=== PATIENT | female | born 1965 | race Caucasian/White ===

== ENCOUNTER 2016-06-24 17:49 | Emergency (ER) ==
[2016-06-24 17:52] VITALS: BP 142/85; TEMP 98.8; BMI 34.2
--- NOTE | 2016-06-24 18:05 | ED.PDOC ---
General ED Provider: Dr. ANGELIA PATTON JR Chief Complaint: Nausea/Vomiting Stated Complaint: patient c/o vomiting and diarrhea. states lower abd. is hurting.[End]SINCE 02:30 98.8 103 20 91% 142/85 710 patient states she has other drug allergies but is unsure what they are. patient also unsure of her medications.[ End ] NOTES HAS HAD EPISODES IN THE PAST IMPROVED WITH ZOFRAN Time Seen by Physician: 18:04 Mode of Arrival: Walk-In Information Source: Patient Exam Limitations: No limitations Nursing and Triage Documentation Reviewed and Agree: No Review of Systems - Review Of Systems Constitutional: Reports: Malaise, Weakness Eyes: Reports: No symptoms Ears, Nose, Mouth, Throat: Reports: No symptoms Respiratory: Reports: No symptoms Cardiac: Reports: No symptoms GI: Reports: Abdominal pain, Nausea, Vomiting, Other (DRY HEAVES) : Reports: No symptoms Musculoskeletal: Reports: No symptoms Skin: Reports: No symptoms Neurological: Reports: No symptoms Endocrine: Reports: No symptoms Hematologic/Lymphatic: Reports: No symptoms All Other Systems: Other Past Medical History - Past Medical History Endocrine: Reports: None Cardiovascular: Reports: None Respiratory: Reports: COPD Hematological: Reports: None Gastrointestinal: Reports: Unknown Genitourinary: Reports: None Neuro/Psych: Reports: Depression Musculoskeletal: Reports: None Cancer: Reports: None Last Menstrual Period: 16 - Surgical History General Surgical History: Reports: Tubal ligation, Orthopedic (carpal tunnel right hand[) - Family History Family History: Reports: Unknown - Social History Smoking Status: Current every day smoker Hx Substance Use: No Alcohol Screening: None Physical Exam - Physical Exam Appearance: Ill-appearing Ill-appearing: Moderate Pain Distress: Moderate Eyes: MARIA ELENA ENT: Ears normal, Nose normal, Oropharynx normal Neck: Supple Respiratory: Airway patent, Breath sounds clear, Breath sounds equal, Respirations nonlabored Cardiovascular: RRR, Pulses normal, No rub, No murmur GI/: Soft, Tender (ruq AND LOWER ABDOMEN) Musculoskeletal: Normal strength, ROM intact, No edema, No calf tenderness Skin: Warm, Dry, Normal color Neurological: Sensation intact, Motor intact, Reflexes intact, Cranial nerves intact, Alert, Oriented Psychiatric: Affect appropriate, Mood appropriate Interpretation - Radiology Interpretation Radiology Interpretation By: Radiologist Radiology Results: Negative Exam Interpreted: CT Scan (ABDOMEN NO ACUTE CHANGES) Critical Care Note - Critical Care Note Total Time (mins): 5 Course - Course Hematology/Chemistry: 06/24/16 18:30 06/24/16 18:30 Orders, Labs, Meds: Lab Review 06/24/16 06/24/16 18:04 18:30 WBC 7.18 RBC 4.89 Hgb 14.1 Hct 44.7 MCV 91.4 MCH 28.8 MCHC 31.5 L RDW Coeff of Javon 14.4 Plt Count 332 Immature Gran % (Auto) 0.3 Neut % (Auto) 70.7 Lymph % (Auto) 23.8 [place] % (Auto) 4.7 Eos % (Auto) 0.1 Baso % (Auto) 0.4 Immature Gran # (Auto) 0.0 Neut # 5.1 Lymph # 1.7 Chaves # 0.3 L Eos # 0.0 Baso # 0.0 Sodium 140 Potassium 4.4 Chloride 105 Carbon Dioxide 26 Anion Gap 13.4 BUN 12 Creatinine 0.73 Estimated GFR (MDRD) 84.00 BUN/Creatinine Ratio 16.43 Glucose 103 Calcium 9.4 Total Bilirubin 0.41 AST 15 ALT 15 Alkaline Phosphatase 70 Total Protein 7.4 Albumin 4.0 Globulin 3.4 Albumin/Globulin Ratio 1.18 Amylase 39 Lipase 16 Urine Color Yellow Urine Clarity Slightly Urine pH 6.0 Ur Specific [place] >=1.030 Urine Protein Negative Urine Glucose (UA) Negative Urine Ketones Negative Urine Blood 1+ Urine Nitrite Negative Urine Bilirubin Negative Urine Urobilinogen 0.2 Ur Leukocyte Esterase Negative Urine Microscopic RBC 5-10 Ur Squamous Epith Cells 30-50 H. pylori IgG Antibody Negative Orders Category Date Time Status AMYLASE Stat LAB 06/24/16 18:30 Completed CBC W/ AUTO DIFF Stat LAB 06/24/16 18:30 Completed COMPREHENSIVE METABOLIC PANEL Stat LAB 06/24/16 18:30 Completed H. PYLORI SCREEN Stat LAB 06/24/16 18:30 Completed LIPASE Stat LAB 06/24/16 18:30 Completed URINALYSIS C & S IF INDICATED Stat LAB 06/24/16 18:04 Completed Ondansetron HCl/Pf [Zofran 4 mg/2 ml] MEDS 06/24/16 18:25 Discontinued 4 mg IM ONCE STA CHEST, 2 VIEWS PA & LAT Stat RADS 06/24/16 18:[address] ABDOMEN/PELVIS WO CONTRAST Stat RADS 06/24/16 18:24 Completed Medications Discontinued Medications Generic Name Dose Route Start Last Admin Trade Name Freq PRN Reason Stop Dose Admin Ondansetron HCl 4 mg 06/24/16 18:25 06/24/16 18:37 Zofran 4 Mg/2 Ml IM 06/24/16 18:26 4 mg ONCE STA Administration Vital Signs: Temp Pulse Resp BP Pulse Ox 06/24/16 17:49 98.8 F 103 H 20 142/85 H 91 L Departure - Departure Time of Disposition: 19:16 Disposition: HOME SELF-CARE Discharge Problem: Nausea, Vomiting Instructions: Acute Nausea and Vomiting (ED) Condition: Good Pt referred to PMD for follow-up: Yes Additional Instructions: clear liquids for 6 to 12 hours after vomiting recheck PMD this week return if fever over 101.0 if not urinating more than three times a day may use phenergan four times a day if needed for nausea Prescriptions: Promethazine HCl [Phenergan Tab] 25 mg PO QID PRN #12 tablet PRN Reason: Nausea / Vomiting Allergies/Adverse Reactions: Allergies ampicillin Adverse Reaction (Verified 06/24/16 17:53) venlafaxine [From Effexor] Adverse Reaction (Verified 06/24/16 17:53) Home Medications: Ambulatory Orders Promethazine HCl [Phenergan Tab] 25 mg PO QID PRN #12 tablet 06/24/16 Disposition Discussed With: Patient, Family
[2016-06-24] MEDS ORDERED: ZOFRAN 4 MG/2 ML IM STA (18:25)
[2016-06-24 18:37] LABS: BILIRUBIN,URINE Negative (NEGATIVE); KETONES,URINE Negative (NEGATIVE); LEUKOCYTE ESTERASE ,URINE Negative (NEGATIVE); NITRITE,URINE Negative (NEGATIVE); PROTEIN,URINE Negative (NEGATIVE); URINE, BLOOD 1+ (NEGATIVE)
[2016-06-24 18:38] LABS: BASOPHILS % (AUTO) 0.4 % (0.0-3.0); EOSINOPHILS % (AUTO) 0.1 % (0.0-7.0); HEMATOCRIT 44.7 % (37.0-47.0); HEMOGLOBIN 14.1 g/dl (12.0-16.0); IMMATURE GRANULOCYTE % (AUTO) 0.3 % (0.0-5.0); LYMPHOCYTES # (AUTO) 1.7 K/uL (0.60-3.4); LYMPHOCYTES % (AUTO) 23.8 (10.0-50.0); MEAN CORPUSCULAR HEMOGLOBIN 28.8 pg (27.0-31.0); MEAN CORPUSCULAR HGB CONC 31.5 (31.8-35.4); MEAN CORPUSCULAR VOLUME 91.4 fl (81.0-99.0); MONOCYTES # (AUTO) 0.3 K/uL (0.4-2.0); MONOCYTES % (AUTO) 4.7 (0-10); NEUTROPHILS # (AUTO) 5.1 K/ul (2.0-6.9); NEUTROPHILS % (AUTO) 70.7; PLATELET COUNT 332 10^3/uL (140-440); RED BLOOD COUNT 4.89 10^6/ul (4.20-5.40); WHITE BLOOD COUNT 7.18 K/ul (4.6-10.2)
[2016-06-24 18:41] LABS: ADD URINE MICROSCOPIC YES
[2016-06-24 18:58] LABS: H. PYLORI ANTIBODY NEGATIVE (NEGATIVE); H.PYLORI INTERNAL QC INTERNAL QC VALID
[2016-06-24 18:59] LABS: ALBUMIN/GLOBULIN RATIO 1.18; ANION GAP 13.4; BILIRUBIN,TOTAL 0.41 mg/dL (0.00-1.20); BUN/CREATININE RATIO 16.43; CALCIUM 9.4 mg/dL (8.2-10.2); CREATININE 0.73 mg/dL (0.60-1.30); POTASSIUM 4.4 mmol/L (3.5-5.10); TOTAL PROTEIN 7.4 g/dL (6.4-8.2)
--- NOTE | 2016-06-24 20:08 | CT ---
EXAM: CT abdomen pelvis without contrast HISTORY: Abdominal pain with nausea/vomiting COMPARISON: None TECHNIQUE: CT abdomen pelvis performed without intravenous contrast. Coronal and sagittal reformat south images obtained. FINDINGS: There is granulomatous calcification left lung base. No free air. No acute abnormalities of the bones. Heart normal in size. Evaluation organ parenchyma limited without contrast. Liver appears normal. Gallbladder appears normal. Pancreas appears normal. Spleen appears normal. Adre nals appear normal. No hydronephrosis or nephrolithiasis. There is a 1.5 cm left renal cyst that i s unchanged from PET-CT 12/14/2013. No calculi visualized in the normal course of the ureters. Milind dder only minimally distended and poorly evaluated. Uterus unremarkable. Aorta normal in caliber w ith mild atherosclerosis. No lymphadenopathy or ascites. Stomach appears normal. No dilated loops small bowel. Appendix appears normal. Colon unremarkable. Small fat-containing umbilical hernia. No inflammatory stranding in the abdomen pelvis. IMPRESSION: No acute inflammatory process identified in the abdomen or pelvis.
--- NOTE | 2016-06-24 22:32 | DI ---
EXAM: Chest two views HISTORY: Vomiting, abdominal pain COMPARISON: None TECHNIQUE: Two views of the chest were performed FINDINGS: The lungs are clear. There is no pleural effusion or pneumothorax. The heart is normal in size. The mediastinal contour is normal. There are no acute abnormalities of the bones. IMPRESSION: No acute cardiopulmonary process.
== END 2016-06-24 20:29 | disposition home or self-care (01) ==
LOC: ED 17:49
DX: R11.2 Nausea with vomiting, unspecified (principal); R19.7 Diarrhea, unspecified; R10.30 Lower abdominal pain, unspecified; F17.210 Nicotine dependence, cigarettes, uncomplicated
CPT/HCPCS: 36415; 80053; 81001; 82150; 83690; 85025; 86677; 96372; 99283

== ENCOUNTER 2016-10-09 07:26 | Emergency (ER) ==
[2016-10-09 07:34] VITALS: BP 131/84; TEMP 98.8; BMI 34.3
[2016-10-09 08:14] LABS: BASOPHILS # (AUTO) 0.1 K/uL (0-0.2); BASOPHILS % (AUTO) 0.6 % (0.0-3.0); EOSINOPHILS # (AUTO) 0.1 K/ul (0.0-0.7); EOSINOPHILS % (AUTO) 1.1 % (0.0-7.0); HEMATOCRIT 41.3 % (37.0-47.0); HEMOGLOBIN 13.6 g/dl (12.0-16.0); IMMATURE GRANULOCYTE % (AUTO) 0.2 % (0.0-5.0); LYMPHOCYTES # (AUTO) 0.9 K/uL (0.60-3.4); LYMPHOCYTES % (AUTO) 8.3 (10.0-50.0); MEAN CORPUSCULAR HEMOGLOBIN 30.2 pg (27.0-31.0); MEAN CORPUSCULAR HGB CONC 32.9 (31.8-35.4); MEAN CORPUSCULAR VOLUME 91.8 fl (81.0-99.0); MONOCYTES # (AUTO) 0.5 K/uL (0.4-2.0); MONOCYTES % (AUTO) 4.4 (0-10); NEUTROPHILS # (AUTO) 8.7 K/ul (2.0-6.9); NEUTROPHILS % (AUTO) 85.4; PLATELET COUNT 273 10^3/uL (140-440); WHITE BLOOD COUNT 10.18 K/ul (4.6-10.2)
--- NOTE | 2016-10-09 08:18 | DI ---
EXAM: PA and lateral views of the chest HISTORY: Cough COMPARISON: Chest x-ray 06/24/2016 FINDINGS: The cardiomediastinal silhouette is normal. There is no pneumothorax or pleural effusion . There is no consolidation, nodule or mass. The osseous structures are unremarkable. IMPRESSION: No acute cardiopulmonary process
[2016-10-09 08:29] LABS: BILIRUBIN,URINE Negative (NEGATIVE); KETONES,URINE Negative (NEGATIVE); LEUKOCYTE ESTERASE ,URINE Trace (NEGATIVE); NITRITE,URINE Negative (NEGATIVE); PROTEIN,URINE Trace (NEGATIVE); URINE, BLOOD 2+ (NEGATIVE)
[2016-10-09 08:30] LABS: ADD URINE MICROSCOPIC YES; BACTERIA,URINE 1+ (NOT PRESENT)
[2016-10-09 08:33] LABS: ALBUMIN 3.6 g/dL (3.4-5.0); ALBUMIN/GLOBULIN RATIO 1.16; ANION GAP 13.6; BILIRUBIN,TOTAL 0.52 mg/dL (0.00-1.20); BUN/CREATININE RATIO 14.66; CALCIUM 8.5 mg/dL (8.2-10.2); CREATININE 0.75 mg/dL (0.60-1.30); POTASSIUM 3.6 mmol/L (3.5-5.10); TOTAL PROTEIN 6.7 g/dL (6.4-8.2)
--- NOTE | 2016-10-09 08:42 | CT ---
EXAM: CT of the abdomen pelvis without contrast History: Diffuse abdominal pain. Comparison: CT abdomen pelvis 06/24/2016 Technique: Multiplanar CT images through the abdomen pelvis were obtained without the administratio n of IV contrast Findings: Lung bases are free of consolidation. Dependent atelectasis seen at the lung bases. Sta ble 4 mm left lower lobe lung nodule. No acute osseous abnormalities. No renal stones and no hydronephrosis. Stable small left renal cyst. No focal liver or splenic les ions. No discrete gallstones identified by CT. No peripancreatic inflammation. Adrenal glands are unremarkable. No bowel obstruction. Bladder is not well distended. Scattered colonic stool. No free air and no ascites. Normal contour the uterus. The visualized appendix is not dilated or infl avril. Impression: No acute intra-abdominal or pelvic process. No change compared to the prior study.
[2016-10-09 08:54] LABS: FLU INTERNAL QC INTERNAL QC VALID; RAPID FLU A NEGATIVE (NEGATIVE); RAPID FLU B NEGATIVE (NEGATIVE)
--- NOTE | 2016-10-09 09:08 | ED.PDOC ---
General ED Provider: Dr. CAR HANSEN Chief Complaint: Nausea/Vomiting Stated Complaint: abdominal pain Time Seen by Physician: 07:30 Mode of Arrival: Walk-In Information Source: Patient Exam Limitations: No limitations Primary Care Provider: AKSHAT MEZA Nursing and Triage Documentation Reviewed and Agree: Yes GI Complaint Exam - Abdominal Pain Complaint/Exam Onset: Gradual Symptoms Are: Still present Timing: Intermittent Initial Severity: Mild Current Severity: Mild Location of Pain: Discrete Character: Reports: Dull Alleviating: Reports: Rest Associated Signs and Symptoms: Denies: Diaphoresis, Fever, Cough, Chest pain, Dizziness, Back pain, Constipation, Blood in stool, Dysuria, Urinary frequency, Decreased urine output, Decreased appetite, Vaginal bleeding, Vaginal discharge , Nausea, Vomiting, Diarrhea, Sore throat, Decreased activity Related History: Reports: Similar episode AAA Risk Factors: Reports: None Review of Systems - Review Of Systems Constitutional: Reports: No symptoms Eyes: Reports: No symptoms Ears, Nose, Mouth, Throat: Reports: No symptoms Respiratory: Reports: No symptoms Cardiac: Reports: No symptoms GI: Reports: Abdominal pain, Nausea, Vomiting (vomited x 1 ) : Reports: No symptoms Musculoskeletal: Reports: No symptoms Skin: Reports: No symptoms Neurological: Reports: No symptoms Endocrine: Reports: No symptoms Hematologic/Lymphatic: Reports: No symptoms All Other Systems: Reviewed and Negative Past Medical History - Past Medical History Endocrine: Reports: None Cardiovascular: Reports: None Respiratory: Reports: COPD Hematological: Reports: None Gastrointestinal: Reports: Unknown Genitourinary: Reports: None Neuro/Psych: Reports: Depression Musculoskeletal: Reports: None Cancer: Reports: None Last Menstrual Period: 2 month ago--irreg now - Surgical History General Surgical History: Reports: Tubal ligation, Orthopedic (carpal tunnel right hand[) - Family History Family History: Reports: Unknown - Social History Smoking Status: Current every day smoker, Heavy tobacco smoker Hx Substance Use: No Alcohol Screening: None Physical Exam - Physical Exam Appearance: Well-appearing, No pain distress, Well-nourished Eyes: MARIA ELENA, EOMI, Conjunctiva clear ENT: Ears normal, Nose normal, Oropharynx normal Respiratory: Airway patent, Breath sounds clear, Breath sounds equal, Respirations nonlabored Cardiovascular: RRR, Pulses normal, No rub, No murmur GI/: Soft, Nontender, No masses, Bowel sounds normal, No Organomegaly Musculoskeletal: Normal strength, ROM intact, No edema, No calf tenderness Skin: Warm, Dry, Normal color Neurological: Sensation intact, Motor intact, Reflexes intact, Cranial nerves intact, Alert, Oriented Psychiatric: Affect appropriate, Mood appropriate Interpretation - Radiology Interpretation Radiology Interpretation By: Radiologist Radiology Results: Negative Exam Interpreted: CXR Critical Care Note - Critical Care Note Total Time (mins): 0 Course - Course Hematology/Chemistry: 10/09/16 08:05 10/09/16 08:05 Orders, Labs, Meds: Lab Review 10/09/16 10/09/16 10/09/16 08:05 08:20 08:25 WBC 10.18 RBC 4.50 Hgb 13.6 Hct 41.3 MCV 91.8 MCH 30.2 MCHC 32.9 RDW Coeff of Javon 14.5 Plt Count 273 Immature Gran % (Auto) 0.2 Neut % (Auto) 85.4 Lymph % (Auto) 8.3 L [place] % (Auto) 4.4 Eos % (Auto) 1.1 Baso % (Auto) 0.6 Immature Gran # (Auto) 0.0 Neut # 8.7 H Lymph # 0.9 Moffat # 0.5 Eos # 0.1 Baso # 0.1 Sodium 141 Potassium 3.6 Chloride 105 Carbon Dioxide 26 Anion Gap 13.6 BUN 11 Creatinine 0.75 Estimated GFR (MDRD) 82.00 BUN/Creatinine Ratio 14.66 Glucose 95 Lactic Acid 18.4 Calcium 8.5 Total Bilirubin 0.52 AST 12 L ALT 13 Alkaline Phosphatase 68 Total Protein 6.7 Albumin 3.6 Globulin 3.1 Albumin/Globulin Ratio 1.16 Urine Color Yellow Urine Clarity Clear Urine pH 6.0 Ur Specific [place] 1.025 Urine Protein Trace Urine Glucose (UA) Negative Urine Ketones Negative Urine Blood 2+ Urine Nitrite Negative Urine Bilirubin Negative Urine Urobilinogen 0.2 Ur Leukocyte Esterase Trace Urine Microscopic RBC 5-10 Urine Microscopic WBC 5-10 Ur Squamous Epith Cells 5-10 Urine Bacteria 1+ Urine Mucus 1+ Influenza A (Rapid) Negative Influenza B (Rapid) Negative Orders Category Date Time Status BLOOD CULTURE Stat LAB 10/09/16 08:05 Received CBC W/ AUTO DIFF Stat LAB 10/09/16 08:05 Completed COMPREHENSIVE METABOLIC PANEL Stat LAB 10/09/16 08:05 Completed LACTIC ACID Stat LAB 10/09/16 08:05 Completed MOLECULAR GROUP A STREP Stat LAB 10/09/16 08:25 Results RAPID FLU A/B Stat LAB 10/09/16 08:25 Completed STREP SCREEN Stat LAB 10/09/16 08:25 Results URINALYSIS C & S IF INDICATED Stat LAB 10/09/16 08:20 Completed URINE CULTURE Stat LAB 10/09/16 08:20 Received CHEST, 2 VIEWS PA & LAT Stat RADS 10/09/16 07:[address] ABDOMEN/PELVIS WO CONTRAST Stat RADS 10/09/16 07:49 Completed Vital Signs: Temp Pulse Resp BP Pulse Ox 10/09/16 07:27 98.8 F 113 H 20 131/84 94 L Departure - Departure Time of Disposition: 09:11 Disposition: HOME SELF-CARE Discharge Problem: Nausea, Vomiting UTI (urinary tract infection) Qualifiers: Urinary tract infection type: site unspecified Hematuria presence: with hematuria Qualifier Code: (N39.0) Urinary tract infection, site not specified Abdominal pain Qualifiers: Abdominal location: generalized Qualifier Code: (R10.84) Generalized abdominal pain Instructions: Urinary Tract Infection in Women (ED) Condition: Good Pt referred to PMD for follow-up: No Additional Instructions: Please call your Family Physician as soon as possible to schedule a follow-up appointment. Prescriptions: Sulfamethoxazole/Trimethoprim [Bactrim Ds Tablet] 1 each PO BID #10 tablet Allergies/Adverse Reactions: Allergies ampicillin Adverse Reaction (Verified 10/09/16 07:36) azithromycin [From Zithromax] Adverse Reaction (Verified 10/09/16 07:36) fluoxetine [From Prozac] Adverse Reaction (Verified 10/09/16 07:36) naproxen Adverse Reaction (Verified 10/09/16 07:36) venlafaxine [From Effexor] Adverse Reaction (Verified 10/09/16 07:36) Home Medications: Ambulatory Orders Albuterol Sulfate 0.083% Neb [Albuterol 0.083% Neb] 1 vial NEB ONCE PRN Albuterol Sulfate [Proair Hfa] 2 puff IH ONCE PRN 10/09/16 Budesonide/Formoterol Fumarate [Symbicort 160-4.5 Mcg Inhaler] 2 puff IH BID Diphenhydramine HCl [Benadryl] 50 mg PO ONCE 10/09/16 Gabapentin 300 mg PO BID 10/09/16 Guaifenesin [Mucinex] 600 mg PO ONCE 10/09/16 Methocarbamol 750 mg PO BEDTIME 10/09/16 Omeprazole [Prilosec] 20 mg PO QDAC 10/09/16 Sulfamethoxazole/Trimethoprim [Bactrim Ds Tablet] 1 each PO BID #10 tablet 10/09 Tramadol HCl 50 mg PO Q4HR PRN 10/09/16
== END 2016-10-09 09:25 | disposition home or self-care (01) ==
LOC: ED 07:26
DX: N39.0 Urinary tract infection, site not specified (principal); R11.2 Nausea with vomiting, unspecified; R10.84 Generalized abdominal pain; F17.210 Nicotine dependence, cigarettes, uncomplicated; Z79.899 Other long term (current) drug therapy
CPT/HCPCS: 36415; 80053; 81001; 83605; 85025; 87040; 87086; 87186; 87651; 87804; 87880; 99283

== ENCOUNTER 2016-10-11 18:55 | Inpatient (IN) ==
[2016-10-11] MEDS ORDERED: LEVAQUIN 500 MG in PREMIX 100 ML D5W 1 BAG IV STA (19:14)
[2016-10-11] MEDS ORDERED: SODIUM CHLORIDE 1,000 ML IV STA (19:14)
[2016-10-11] MEDS ORDERED: SOLU-MEDROL 125 MG IVP STA (19:14)
[2016-10-11] MEDS ORDERED: DUONEB NEB STA (19:15)
[2016-10-11] MEDS ORDERED: XOPENEX 1.25 MG NEB STA (19:15)
[2016-10-11] MEDS ORDERED: SODIUM CHLORIDE IV STA (19:17)
[2016-10-11] MEDS ORDERED: PHENERGAN IV STA (19:17)
[2016-10-11] MEDS ORDERED: NORCO 7.5-325 PO STA (19:17)
[2016-10-11] MEDS ORDERED: LEVAQUIN 100 ML IV ONE (19:26)
[2016-10-11] MEDS ORDERED: PHENERGAN 50MG/ML AMP ONE (19:26)
[2016-10-11 19:49] LABS: BASOPHILS % (AUTO) 0.6 % (0.0-3.0); EOSINOPHILS % (AUTO) 0.6 % (0.0-7.0); HEMATOCRIT 42.3 % (37.0-47.0); HEMOGLOBIN 14.1 g/dl (12.0-16.0); IMMATURE GRANULOCYTE % (AUTO) 0.2 % (0.0-5.0); LYMPHOCYTES # (AUTO) 1.3 K/uL (0.60-3.4); LYMPHOCYTES % (AUTO) 25.3 (10.0-50.0); MEAN CORPUSCULAR HEMOGLOBIN 30.8 pg (27.0-31.0); MEAN CORPUSCULAR HGB CONC 33.3 (31.8-35.4); MEAN CORPUSCULAR VOLUME 92.4 fl (81.0-99.0); MONOCYTES # (AUTO) 0.5 K/uL (0.4-2.0); MONOCYTES % (AUTO) 9.9 (0-10); NEUTROPHILS # (AUTO) 3.1 K/ul (2.0-6.9); NEUTROPHILS % (AUTO) 63.4; PLATELET COUNT 274 10^3/uL (140-440); RED BLOOD COUNT 4.58 10^6/ul (4.20-5.40); WHITE BLOOD COUNT 4.95 K/ul (4.6-10.2)
[2016-10-11 20:01] LABS: SERUM PREGNANCY INTERNAL QC INTERNAL QC VALID
[2016-10-11 20:01] LABS: ABG BASE EXCESS 0 (-2.0-2.0); ABG HCO3 26.3 (22.0-26.0); ABG PCO2 49.4 mmHg (35-45); ABG PH 7.335 (7.35-7.45); ABG TCO2 28 (22.0-28.0)
[2016-10-11 20:09] LABS: FLU INTERNAL QC INTERNAL QC VALID; RAPID FLU A NEGATIVE (NEGATIVE); RAPID FLU B NEGATIVE (NEGATIVE)
[2016-10-11 20:10] LABS: ALANINE AMINOTRANSFERASE 21 U/L (12-78); ALBUMIN 3.8 g/dL (3.4-5.0); ALBUMIN/GLOBULIN RATIO 1.06; ALKALINE PHOSPHATASE 62 U/L (42-98); ANION GAP 13.7; ASPARTATE AMINO TRANSFERASE 21 U/L (15-37); BILIRUBIN,TOTAL 0.38 mg/dL (0.00-1.20); BLOOD UREA NITROGEN 13 mg/dL (7-18); BUN/CREATININE RATIO 15.85; CALCIUM 8.6 mg/dL (8.2-10.2); CARBON DIOXIDE 26 mmol/L (21-32); CHLORIDE 102 mmol/L (98-107); CREATINE KINASE 83 U/L; CREATININE 0.82 mg/dL (0.60-1.30); GLUCOSE 115 mg/dL (70-110); POTASSIUM 3.7 mmol/L (3.5-5.10); SODIUM 138 mmol/L (136-145); TOTAL PROTEIN 7.4 g/dL (6.4-8.2)
--- NOTE | 2016-10-11 20:49 | CT ---
EXAM: CT of the head without contrast. HISTORY: Headache. COMPARISON: None. TECHNIQUE: Contiguous axial images at 5 mm intervals were obtained from the base of the skull to th e vertex of the calvarium. No contrast was given. FINDINGS: The CSF containing spaces are normal in size and position. There are no extraaxial fluid collections. There is no evidence of an acute intracranial hemorrhage. There are no masses or mas s effect. No areas of abnormal density are identified. Cary-white differentiation is normal. Th e osseous and extracranial soft tissues are normal. IMPRESSION: No acute intracranial abnormality.
--- NOTE | 2016-10-11 20:54 | CT ---
EXAM: CT of the chest without contrast. HISTORY: Fever. Cough. COMPARISON: PET CT day 12/14/2013.. TECHNIQUE: Contiguous axial images at 5 mm intervals obtained from the lung apices to the upper abd omen. Study was performed without contrast. Sagittal and coronal reformats were reviewed. FINDINGS: The lung windows show no lobar consolidation or effusion. The pulmonary interstitium appe ars normal. The airways are widely patent. There is no pleural thickening or effusion. On axial i mages 22, there is a 3 mm noncalcified pulmonary nodule which is unchanged from previous study. On axial image 28, there is a similar 4 mm noncalcified nodule. These are both unchanged in comparison to the previous PET-CT. A calcified granuloma is seen in the left lower lobe. No new nodules are id entified. The airways are widely patent. The heart size is within normal as. There is no signif icant mediastinal or hilar adenopathy. Limited views of the upper abdomen are unremarkable. There is a density in the colon which has appe arance of a pill fragment. The osseous structures are normal for age. IMPRESSION: 1. No acute pulmonary disease. 2. Granulomatous change. 3. Stable noncalcified 3 and 4 mm nodules in the left upper lobe. No significant change dating porsha k to 2013.
--- NOTE | 2016-10-11 21:01 | ED.PDOC ---
General ED Provider: Dr. MANISHA RODRIGUEZ-ER Chief Complaint: Headache Stated Complaint: im coughing, vomiting and im running a fever Time Seen by Physician: 18:55 Mode of Arrival: Walk-In Information Source: Patient Exam Limitations: No limitations Primary Care Provider: AKSHAT MEZA Nursing and Triage Documentation Reviewed and Agree: Yes Respiratory Complaint Exam - Respiratory Complaint/Exam Onset/Duration: 2 days Symptoms Are: Still present Timing: Constant Initial Severity: Mild Current Severity: Moderate Character: Reports: Non-productive cough Aggravating: Reports: URI Alleviating: Reports: None Associated Signs and Symptoms: Reports: Fever, URI, Sinus discomfort, Vomiting, Decreased oral intake. Denies: Rapid breathing, Dyspnea, Chills, Chest pain, Pleuritic chest pain, Wheezing, Hemoptysis, Dizziness, Calf pain, Calf swelling , Edema, Nasal congestion, Hoarseness, Sore throat, Weight loss, Increased thirst, Increased appetite, Increased urination Related History: Reports: Similar episode History of Healthcare-Acquired Pneumonia: No Related Surgical History: Reports: None Pulmonary Embolism Risk Factors: None Pseudomonas Risk Factors: Reports: Chronic Lung Disease Status Asthmaticus Risk Factors: Reports: None Home Oxygen Use: No Recent Stress Test: No Recent Echo/LV Function: No Current Antibiotic Use: No Current Asthma Medication Use: No Respiratory Distress: Mild Inadequate Respiratory Effort: No Dysphagia Present: No Stridor Present: No JVD Present: No Accessory Muscle Use: No Retractions: Not Present Diminished Breath Sounds: No Sinus Tenderness: None Grunting Respirations: No Kussmaul Respirations: No Differential Diagnoses: Pneumonia, Influenza Non-Traumatic Chest Pain Syncope: EKG Performed Review of Systems - Review Of Systems Constitutional: Reports: Chills, Fever, Weakness Eyes: Reports: No symptoms Ears, Nose, Mouth, Throat: Reports: No symptoms Respiratory: Reports: Cough, Wheezing Cardiac: Reports: No symptoms GI: Reports: Nausea, Vomiting : Reports: No symptoms Musculoskeletal: Reports: No symptoms Skin: Reports: No symptoms Neurological: Reports: No symptoms Endocrine: Reports: No symptoms Hematologic/Lymphatic: Reports: No symptoms All Other Systems: Reviewed and Negative Past Medical History - Past Medical History Endocrine: Reports: None Cardiovascular: Reports: None Respiratory: Reports: COPD Hematological: Reports: None Gastrointestinal: Reports: Unknown Genitourinary: Reports: None Neuro/Psych: Reports: Depression Musculoskeletal: Reports: None Cancer: Reports: None Last Menstrual Period: 2 months ago - Surgical History General Surgical History: Reports: Tubal ligation, Orthopedic (carpal tunnel right hand[) - Family History Family History: Reports: Unknown - Social History Smoking Status: Current every day smoker, Heavy tobacco smoker Hx Substance Use: No Alcohol Screening: None Lives: With family Physical Exam - Physical Exam Appearance: Well-appearing Pain Distress: Mild Eyes: MARIA ELENA, EOMI, Conjunctiva clear ENT: Ears normal, Nose normal, Oropharynx normal Neck: Supple Respiratory: Airway patent Cardiovascular: RRR, Pulses normal, No rub, No murmur GI/: Soft, Nontender, No masses, Bowel sounds normal, No Organomegaly Musculoskeletal: Normal strength Skin: Warm Neurological: Sensation intact Psychiatric: Affect appropriate, Mood appropriate Physician Notification - Case Discussed Physician Notified: dr james webber--asked for procalcitonin level Time of Notification: 21:52 Critical Care Note - Critical Care Note Total Time (mins): 0 Course - Course Hematology/Chemistry: 10/11/16 19:35 10/11/16 19:35 Orders, Labs, Meds: Lab Review 10/11/16 10/11/16 19:11 19:35 WBC 4.95 D RBC 4.58 Hgb 14.1 Hct 42.3 MCV 92.4 MCH 30.8 MCHC 33.3 RDW Coeff of Javon 14.3 Plt Count 274 Immature Gran % (Auto) 0.2 Neut % (Auto) 63.4 Lymph % (Auto) 25.3 Colbert % (Auto) 9.9 Eos % (Auto) 0.6 Baso % (Auto) 0.6 Immature Gran # (Auto) 0.0 Neut # 3.1 Lymph # 1.3 Colbert # 0.5 Eos # 0.0 Baso # 0.0 D-Dimer (Manual) 289.15 Puncture Site Rb O2 Saturation 81.0 L ABG pH 7.335 L ABG pCO2 49.4 H ABG pO2 49.0 L* ABG HCO3 26.3 H ABG Total CO2 28 ABG Base Excess 0 Kulwinder Test + FiO2 % 21.0 Sodium 138 Potassium 3.7 Chloride 102 Carbon Dioxide 26 Anion Gap 13.7 BUN 13 Creatinine 0.82 Estimated GFR (MDRD) 74.00 BUN/Creatinine Ratio 15.85 Glucose 115 H Calcium 8.6 Total Bilirubin 0.38 AST 21 ALT 21 Alkaline Phosphatase 62 Total Creatine Kinase 83 Troponin I < 0.0100 B-Natriuretic Peptide 30 Total Protein 7.4 Albumin 3.8 Globulin 3.6 Albumin/Globulin Ratio 1.06 Procalcitonin < 0.05 Serum , Qual Negative Influenza A (Rapid) Negative Influenza B (Rapid) Negative Orders Category Date Time Status ABG DRAW REQUEST Stat CARDIO 10/11/16 19:12 Completed EKG-(ED ONLY) Stat CARDIO 10/11/16 19:12 Completed NEBULIZER TREATMENT Stat CARDIO 10/11/16 19:15 Completed IV [ED IV/MEDIPORT/POWERPORT] .ONCE EMERGENCY 10/11/16 19:14 Active ABG Stat LAB 10/11/16 19:11 Completed B-TYPE NATRIURETIC PEPTIDE Stat LAB 10/11/16 19:35 Completed BLOOD CULTURE Stat LAB 10/11/16 19:35 Received CBC W/ AUTO DIFF Stat LAB 10/11/16 19:35 Completed COMPREHENSIVE METABOLIC PANEL Stat LAB 10/11/16 19:35 Completed CREATINE KINASE Stat LAB 10/11/16 19:35 Completed D-DIMER Stat LAB 10/11/16 19:35 Completed MOLECULAR GROUP A STREP Stat LAB 10/11/16 19:35 Results PROCALCITONIN Stat LAB 10/11/16 19:35 Completed RAPID FLU A/B Stat LAB 10/11/16 19:35 Completed SERUM Stat LAB 10/11/16 19:35 Completed STREP SCREEN Stat LAB 10/11/16 19:35 Results TROPONIN I Stat LAB 10/11/16 19:35 Completed 0.9 % Sodium Chloride [Saline Flush] MEDS 10/11/16 19:14 Ordered 1 syr IVF PRN PRN Hydrocodone Bit/Acetaminophen [Villisca 7.5-325] MEDS 10/11/16 19:17 Discontinued 1 tab PO ONCE STA Ipratropium/Albuterol Neb [Duoneb] MEDS 10/11/16 19:15 Discontinued 1 vial NEB ONCE STA Levalbuterol HCl [Xopenex 1.25 mg] MEDS 10/11/16 19:15 Discontinued 1 vial NEB ONCE STA Levofloxacin/D5w [Levaquin] 100 ml MEDS 10/11/16 19:26 Discontinued IV .STK-MED Levofloxacin/D5w [Levaquin] 500 mg MEDS 10/11/16 19:14 Discontinued Premix 100 ml D5w 1 bag IV ONCE Methylprednisolone Sod Succ/Pf [Solu-Medrol 125 mg] MEDS 10/11/16 19:14 Discontinued 125 mg IVP ONCE STA Promethazine HCl [Phenergan 50Mg/ml Amp] MEDS 10/11/16 19:26 Discontinued 50 mg .ROUTE .STK-MED ONE Promethazine HCl [Phenergan 50Mg/ml Amp] 12.5 mg MEDS 10/11/16 19:17 Discontinued 0.9 % Sodium Chloride [Sodium Chloride] 50 ml IV ONCE Sodium Chloride 0.9% [Sodium Chloride] 1,000 ml MEDS 10/11/16 19:14 Active IV 100 mls/hr CT ABDOMEN/PELVIS WO CONTRAST Stat RADS 10/11/16 20:[address] CHEST W/O CONTRAST Stat RADS 10/11/16 19:[address] HEAD W/O CONTRAST Stat RADS 10/11/16 19:17 Completed Medications Generic Name Dose Route Start Last Admin Trade Name Freq PRN Reason Stop Dose Admin Sodium Chloride 1,000 mls @ 100 mls/hr 10/11/16 19:14 10/11/16 19:45 Sodium Chloride IV 10/12/16 05:13 100 mls/hr .Q10H STA Administration Sodium Chloride 1 syr 10/11/16 19:14 Saline Flush IVF PRN PRN To flush IV Discontinued Medications Generic Name Dose Route Start Last Admin Trade Name Freq PRN Reason Stop Dose Admin Acetaminophen/Hydrocodone Bitart 1 tab 10/11/16 19:17 10/11/16 19:35 Villisca 7.5-325 PO 10/11/16 19:18 1 tab ONCE STA Administration Albuterol/Ipratropium 1 vial 10/11/16 19:15 10/11/16 19:58 Duoneb NEB 10/11/16 19:16 1 vial ONCE STA Administration Levofloxacin/Dextrose 500 mg/ 100 mls @ 100 mls/hr 10/11/16 19:14 10/11/16 20 :32 Dextrose IV 10/11/16 20:13 100 mls/hr ONCE STA Administration Promethazine HCl 12.5 mg/ 50.25 mls @ 75 mls/hr 10/11/16 19:17 10/11/16 19:34 Sodium Chloride IV 10/11/16 19:57 75 mls/hr ONCE STA Administration Levalbuterol HCl 1 vial 10/11/16 19:15 10/11/16 20:10 Xopenex 1.25 Mg NEB 10/11/16 19:16 1 vial ONCE STA Administration Methylprednisolone Sodium Succinate 125 mg 10/11/16 19:14 10/11/16 19:33 Solu-Medrol 125 Mg IVP 10/11/16 19:15 125 mg ONCE STA Administration Vital Signs: Temp Pulse Resp BP Pulse Ox 10/11/16 18:55 100 F H 94 H 20 127/86 84 L Departure - Departure Time of Disposition: 21:51 Disposition: ADMITTED INPATIENT Discharge Problem: COPD with exacerbation Acute respiratory failure Qualifiers: Respiratory failure complication: hypoxia Qualifier Code: (J96.01) Acute respiratory failure with hypoxia Instructions: COPD (Chronic Obstructive Pulmonary Disease) (ED) Condition: Good Pt referred to PMD for follow-up: No Allergies/Adverse Reactions: Allergies ampicillin Adverse Reaction (Verified 10/11/16 18:59) azithromycin [From Zithromax] Adverse Reaction (Verified 10/11/16 18:59) fluoxetine [From Prozac] Adverse Reaction (Verified 10/11/16 18:59) naproxen Adverse Reaction (Verified 10/11/16 18:59) venlafaxine [From Effexor] Adverse Reaction (Verified 10/11/16 18:59) Home Medications: Ambulatory Orders Albuterol Sulfate 0.083% Neb [Albuterol 0.083% Neb] 1 vial NEB ONCE PRN Albuterol Sulfate [Proair Hfa] 2 puff IH ONCE PRN 10/09/16 Budesonide/Formoterol Fumarate [Symbicort 160-4.5 Mcg Inhaler] 2 puff IH BID Diphenhydramine HCl [Benadryl] 50 mg PO ONCE 10/09/16 Gabapentin 300 mg PO BID 10/09/16 Guaifenesin [Mucinex] 600 mg PO ONCE 10/09/16 Methocarbamol 750 mg PO BEDTIME 10/09/16 Omeprazole [Prilosec] 20 mg PO QDAC 10/09/16 Sulfamethoxazole/Trimethoprim [Bactrim Ds Tablet] 1 each PO BID #10 tablet 10/09 Tramadol HCl 50 mg PO Q4HR PRN 10/09/16 Disposition Discussed With: Patient
--- NOTE | 2016-10-11 21:31 | CT ---
EXAM: Noncontrast CT of the abdomen and pelvis. HISTORY: Vomiting and fever. COMPARISON: 10/09/2016 TECHNIQUE: Contiguous axial images at 3 mm intervals were obtained from lung bases through the pelv is. No contrast was given. Coronal reformats were reviewed. FINDINGS: The study is limited without contrast. CHEST: The lung bases show no lobar consolidation or effusion. The heart size is within normal kaufman its. ABDOMEN: Evaluation of the soft tissue organs is limited without contrast. LIVER: Noncontrast images of the liver show no solid mass lesion or intrahepatic ductal dilatation. BILIARY: The gallbladder is normally distended. No gallstones are noted. No pericholecystic fluid or inflammation. The common bile duct is normal. SPLEEN: The spleen is unremarkable. PANCREAS: The pancreas shows no mass lesion or peripancreatic inflammation. ADRENAL GLANDS: The adrenal glands are normal. RENAL: The kidneys show no hydronephrosis or nephrolithiasis. There are no obstructing ureteral st ones. No solid mass lesions are identified. There is an exophytic cyst in the left kidney measurin g up to 1.5 cm. Previously, this measured 1.6 cm. RETROPERITONEUM: The aorta is unopacified. No aneurysm is identified. No significant aortic calci fications are seen. There is no retroperitoneal or mesenteric adenopathy. BOWEL: The bowel is unopacified. There is no obstruction or inflammatory change. There is no free fluid or free air. No significant inflammatory changes are seen. Multiple densities seen through out the colon which appear to be of fragments. The appendix is identified and is normal. PELVIS: BLADDER: The bladder is not well distended which limits evaluation.. GENITOURINARY STRUCTURES: Unremarkable. OSSEOUS STRUCTURES: The osseous structures are normal for age. IMPRESSION 1. No acute intra-abdominal abnormality. Limited study without contrast. No obstructing ureteral stones. 2. The appendix is normal. 3. Left renal cyst measuring up to 1.5 cm. 4. Multiple pill fragments throughout the bowel.
[2016-10-11] MEDS ORDERED: NORCO 7.5-325 PO PRN (22:28)
[2016-10-11] MEDS ORDERED: ULTRAM PO PRN (22:29)
[2016-10-11] MEDS ORDERED: NON-FORMULARY MEDICATION (Methocarbamol [Methocarbamol] 750 MG) PO SCH (22:30)
[2016-10-11] MEDS ORDERED: ROBAXIN PO ONE (23:08)
[2016-10-11 23:33] VITALS: BMI 31.6
[2016-10-11] MEDS ORDERED: DUONEB NEB ONE (23:42)
[2016-10-11] MEDS: DUONEB NEB SCH (23:42)
[2016-10-11] MEDS: SYMBICORT 160-4.5 MCG INHALER IH SCH (23:56)
[2016-10-12] MEDS: SOLU-MEDROL 40 MG IVP SCH ×4 (00:43→20:15)
[2016-10-12] MEDS: DUONEB NEB SCH ×2 (05:39→11:14)
[2016-10-12 06:04] LABS: BASOPHILS % (AUTO) 0.3 % (0.0-3.0); HEMATOCRIT 40.7 % (37.0-47.0); HEMOGLOBIN 13.5 g/dl (12.0-16.0); IMMATURE GRANULOCYTE % (AUTO) 0.6 % (0.0-5.0); LYMPHOCYTES # (AUTO) 0.5 K/uL (0.60-3.4); LYMPHOCYTES % (AUTO) 14.4 (10.0-50.0); MEAN CORPUSCULAR HEMOGLOBIN 30.2 pg (27.0-31.0); MEAN CORPUSCULAR HGB CONC 33.2 (31.8-35.4); MEAN CORPUSCULAR VOLUME 91.1 fl (81.0-99.0); MONOCYTES % (AUTO) 1.2 (0-10); NEUTROPHILS # (AUTO) 2.8 K/ul (2.0-6.9); NEUTROPHILS % (AUTO) 83.5; PLATELET COUNT 260 10^3/uL (140-440); RED BLOOD COUNT 4.47 10^6/ul (4.20-5.40)
[2016-10-12 06:25] LABS: ALBUMIN 3.6 g/dL (3.4-5.0); ALBUMIN/GLOBULIN RATIO 1.03; BILIRUBIN,TOTAL 0.28 mg/dL (0.00-1.20); BUN/CREATININE RATIO 14.86; CALCIUM 8.6 mg/dL (8.2-10.2); CREATININE 0.74 mg/dL (0.60-1.30); TOTAL PROTEIN 7.1 g/dL (6.4-8.2)
[2016-10-12] MEDS ORDERED: PRILOSEC PO SCH (06:30)
[2016-10-12] MEDS: LOVENOX SUBCUT SCH (08:47)
[2016-10-12] MEDS: MUCINEX PO SCH ×2 (08:48→22:04)
[2016-10-12] MEDS: NEURONTIN PO SCH ×2 (08:48→22:05)
[2016-10-12] MEDS: SYMBICORT 160-4.5 MCG INHALER IH SCH ×2 (08:49→22:04)
[2016-10-12] MEDS: SODIUM CHLORIDE 1,000 ML IV SCH (11:27)
[2016-10-12] MEDS ORDERED: DUONEB NEB PRN (14:33)
[2016-10-12] MEDS ORDERED: ROBAXIN PO SCH (21:00)
[2016-10-12] MEDS: LEVAQUIN 500 MG in PREMIX 100 ML D5W 1 BAG IV SCH (22:04)
[2016-10-12] MEDS ORDERED: PRILOSEC ONE (22:27)
[2016-10-12] MEDS: ZOFRAN 4 MG/2 ML IVP PRN (22:32)
[2016-10-13] MEDS: SOLU-MEDROL 40 MG IVP SCH ×4 (00:15→19:43)
[2016-10-13 05:45] LABS: BASOPHILS % (AUTO) 0.1 % (0.0-3.0); HEMATOCRIT 40.4 % (37.0-47.0); HEMOGLOBIN 13.4 g/dl (12.0-16.0); IMMATURE GRANULOCYTE % (AUTO) 0.4 % (0.0-5.0); LYMPHOCYTES % (AUTO) 16.7 (10.0-50.0); MEAN CORPUSCULAR HEMOGLOBIN 30.1 pg (27.0-31.0); MEAN CORPUSCULAR HGB CONC 33.2 (31.8-35.4); MEAN CORPUSCULAR VOLUME 90.8 fl (81.0-99.0); MONOCYTES # (AUTO) 0.7 K/uL (0.4-2.0); MONOCYTES % (AUTO) 5.9 (0-10); NEUTROPHILS # (AUTO) 9.3 K/ul (2.0-6.9); NEUTROPHILS % (AUTO) 76.9; PLATELET COUNT 264 10^3/uL (140-440); RED BLOOD COUNT 4.45 10^6/ul (4.20-5.40); WHITE BLOOD COUNT 12.14 K/ul (4.6-10.2)
[2016-10-13] MEDS: PRILOSEC PO SCH ×2 (06:03→19:43)
[2016-10-13 06:15] LABS: ALBUMIN 3.4 g/dL (3.4-5.0); ALBUMIN/GLOBULIN RATIO 1.03; ANION GAP 11.9; BILIRUBIN,TOTAL 0.41 mg/dL (0.00-1.20); BUN/CREATININE RATIO 18.3; CALCIUM 8.8 mg/dL (8.2-10.2); CREATININE 0.71 mg/dL (0.60-1.30); POTASSIUM 3.9 mmol/L (3.5-5.10); TOTAL PROTEIN 6.7 g/dL (6.4-8.2)
[2016-10-13] MEDS: NEURONTIN PO SCH (08:08)
[2016-10-13] MEDS: MUCINEX PO SCH (08:09)
[2016-10-13] MEDS: SYMBICORT 160-4.5 MCG INHALER IH SCH (08:09)
[2016-10-13] MEDS: SODIUM CHLORIDE 1,000 ML IV SCH (08:09)
[2016-10-13] MEDS: LOVENOX SUBCUT SCH (08:09)
[2016-10-13] MEDS: ZOFRAN 4 MG/2 ML IVP PRN (08:37)
[2016-10-13 14:03] VITALS: BP 123/78; TEMP 97.4
[2016-10-13] MEDS: LEVAQUIN 500 MG in PREMIX 100 ML D5W 1 BAG IV SCH (17:16)
[2016-10-13] MEDS ORDERED: PRILOSEC PO SCH (22:00)
--- NOTE | 2016-10-16 13:16 | HP ---
CHIEF COMPLAINT: Headache, nausea and vomiting. She also has low grade fever alternating hot and cold sensation. HISTORY OF PRESENT ILLNESS: The patient last Friday, 3 days prior to presentation to the emergency room on Friday, did experience severe sore throat. The sore throat continued with the headache as well as nausea and vomiting. The patient had no diarrhea. She thought she might have a fever but not documented. She presented to the emergency room because of the severe headache. During the course of the evaluation, the patient was found to have severe hypoxemia. The patient however denied being short of breath at the time of presentation. The patient in the emergency room had the following vital signs: Temperature 100 , pulse 94, respiratory rate 20, oxygen saturation 84 on room air. Blood pressure 127/86. Headache graded at 8. She is 5'6, 213 pounds, BMI 54.3. The patient had chest CT, head CT as well as CT scan of the abdomen and pelvis to address the symptoms that the patient presented. Chest CT read as no acute pulmonary disease, granulomata changes, stable noncalcified 3 to 4 mm nodules in the left upper lobe. No significant change dating back to 2013. Head CT because of headache showed no acute intracranial abnormality. CT scan of the abdomen no acute intraabdominal abnormality. Appendix is normal. Left renal cyst measuring up to 1.5 cm. Multiple pill fragments throughout the bowel. Serial blood gases were done because of oxygen saturation on room air below 90. The patient denies being short of breath as a reason for coming to the emergency room. The p02 was 49 and saturation 81, pH 7.335, pc02 49.4, Hc03 26.3 , total C02 28, base excess 0, FI02 21. She had been smoking since age 10. She smokes one pack of cigarettes a day. I wonder if this patient has Alpha 1 antitrypsin. PAST PERSONAL HISTORY: The patient was diagnosed with COPD in the past, depression, tubal ligation, carpal tunnel surgery, right hand. The patient had some arthritis of the right shoulder. The patient had pneumothorax but did not require any chest tube. FAMILY HISTORY: Brother had myocardial infarction, father had lung carcinoma, mother had congestive heart failure, diabetes as well as kidney disease. SOCIAL HISTORY: The patient is and resides with her . She smokes one pack of cigarettes a day. Denies any alcoholic use or abuse and denies any drug use or abuse other than prescribed. MEDICATIONS: (Prior to this admission) 1. Albuterol Sulfate 0.083% nebulizer one vial once p.r.n. 2. Gabapentin 300 mg capsule twice a day 3. Symbicort 160/4.5 mcg two puff twice a day 4. Albuterol Sulfate HFA two puffs once p.r.n. 5. Methocarbamol 750 mg p.o. bedtime 6. Mucinex 600 mg once daily 7. Omeprazole 20 mg daily 8. Benadryl 25 mg capsule, two capsules once a day 9. Tramadol 50 mg tablet q.4hr p.r.n. 10. Bactrim DS one tablet twice a day #10 ALLERGIES: AMPICILLIN, AZITHROMYCIN, FLUOXETINE, NAPROSYN, VENLAFAXINE REVIEW OF SYSTEMS: CONSTITUTIONAL: The patient has a low grade fever but no chills but had alternating hot and cold sensation with some fatigue. She had been sick since Friday, three days prior to presentation through the emergency room. 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 Denies any ataxia or any seizure problems or loss of consciousness. VISUAL: The patient denies any blurred vision, double vision or transient loss of vision. AUDITORY: No significant hearing loss, no tinnitus, no dizziness and no pain or drainage. RESPIRATORY: The patient did have some cough, denies any shortness of breath in spite of the markedly abnormal arterial blood gases and below 90 oxygen saturation with oximetry. CARDIOVASCULAR: Denies any chest pain or chest tightness. GASTROINTESTINAL: The patient had nausea, vomiting but no diarrhea. GENITOURINARY: Denies any pain, frequency of urination. MUSCULOSKELETAL: Denies any muscular or joint pains with this episode. INTEGUMENT: Denies any rash or pruritus. ENDOCRINE: Negative. HEMATOLOGIC: No history of prolonged bleeding. PSYCHIATRIC: Affect is okay. PHYSICAL EXAMINATION: GENERAL: 51-year-old female was admitted to the hospital from the emergency room because of severe hypoxemia. Chest CT was unremarkable. The diagnosis on admission was acute exacerbation of chronic bronchitis. This patient however presented to the emergency room because of headache, nausea and vomiting with a sore throat prior to that. The patient, while in the emergency room on routine determination of oxygen saturation showed an oxygen saturation of 84 triggering the arterial blood gas determination. HEAD: Unremarkable. Face is symmetrical and equal with no significant tenderness in the frontomaxillary sinus areas. EYES: Pupils equal/reactive to light about 3 mm in size. Conjunctivae not pale. Sclerae not icteric. MOUTH: The patient has no dentures. THROAT: No inflammation, tumors or exudate. NECK: No masses. No bruit. No tenderness. No adenitis. LUNGS: Breath sounds are heard on both sides, diminished with no rales or wheezing. HEART: Audible and regular with good tones. No murmurs. ABDOMEN: Flat, soft with no remarkable tenderness, no guarding. Bowel sounds active. No masses palpable. The breasts were examined in the presence of the nurse and the breasts are symmetrical and equal and nipples not retracted. The skin appears normal. No dominant masses on palpation. Axilla negative for any adenopathies or masses. LOWER EXTREMITIES: Symmetrical and equal with no significant edema. Anterior tibial pulses could not be found. UPPER EXTREMITIES: Symmetrical and equal. ASSESSMENT: 1. ACUTE VIRAL SYNDROME 2. RESPIRATORY FAILURE, ETIOLOGY UNDETERMINED 3. CHRONIC TOBACCO USE AND ABUSE PERSISTENT SINCE 10 YEARS OF AGE 4. HISTORY OF COPD DIAGNOSIS 5. HISTORY OF DEPRESSION 6. HISTORY OF TUBAL LIGATION 7. HISTORY OF CARPAL TUNNEL SURGERY RIGHT HAND MTDD
--- NOTE | 2016-10-16 13:35 | DS ---
PATIENT IDENTIFICATION: 51-year-old female who presented to the emergency room after three days of illness. It began with a headache, nausea and vomiting with fever. The patient's initial vital signs showed temperature of 100 with normal blood pressure of 127/86 with oxygen saturation below acceptable levels at 84 on room air. Arterial blood gases were done showing severe hypoxemia with p02 of 49. The patient did have expiratory wheezing bilaterally as well as anteriorly. Heart is normal sinus rhythm. Abdomen unremarkable. Neck is not rigid. The patient had a CT scan of the head, chest, abdomen and pelvis since she had vomiting and diarrhea. Rapid A and B were negative at the emergency room. CBC showed normal WBC. Chemistry was unremarkable except for elevated blood sugar at 115, negative serum test. Procalcitonin less than 0.05. Normal kinase and troponin. This patient is a smoker and smokes one pack of cigarettes a day since 10 years of age. The patient was given Solu-Medrol in the emergency room and was continued at 40 mg every 6 hours. Zofran was utilized for the nausea and vomiting. She was also given Levofloxacin 500 mg intravenously daily. She also received Lovenox 40 mg subcutaneously during this hospitalization. The patient's temperature had returned to normal soon after admission and remained normal until the day of discharge. PHYSICAL EXAMINATION: Vital signs at 2 p.m. at 4:30 on 10/13/16 showed a temperature 97.4, pulse 84, blood pressure 123/78, respiratory rate 20, oxygen saturation 98 on room air. The patient's general appearance is good and she is not dyspneic or tachypneic. NECK: No masses, no bruit. LUNGS: Breath sounds are heard on both sides with minimal end expiratory wheeze at the base on the right. The left is clear. HEART: Audible and regular with good tones. ABDOMEN: Unremarkable. LOWER EXTREMITIES: No tenderness in the calf muscles. Blood culture was negative and Rapid A was negative. The patient claimed that she felt ready to go home and feels like she can go home. 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 She claimed that her nose is irritated more by the marijuana smell. She works in [employer]. The told me where they work since I told them that in [place] there is no smoking in every business facility. The patient goes to [place] for medical care including her . I did tell them that since they had moved to [place] that they can go to the clinic at [facility], which is not very far from the hospital. I did advise her to be seen by either her provider in [place] or at the Clinic this coming week. She will be provided with the phone number if she wishes to. At discharge she is to resume all of her previous medications. She is prescribed Levaquin 500 mg tablet #5 to be given one daily beginning tomorrow. She also prescribed Prednisone 10 mg tablet #15 to be taken one tablet three times a day for three days and twice a day for two days and then daily. The patient may return to the emergency room if she would have recurrence of her problems. The patient's D. dimer in the emergency room was 289.15, normal. ASSESSMENT: 1. Acute exacerbation of chronic bronchitis, improved. 2. Acute respiratory failure secondary to #1. 3. Acute febrile illness probably viral, resolved. 4. Chronic tobacco use and abuse, persistent. 5. History of COPD. 6. History of depression. 7. History of tubal ligation. 8. History of carpal tunnel surgery, right. I had discussed smoking cessation with her and also repeated that discussion today in the presence of her . I did advise her not to resume smoking. She can use nicotine patches if she desires; she is still using nicotine but not smoking. I did advise her to do it cold turkey although I recognize that it is a difficult task but if she is able to succeed it would improve her health conditions. FARZANA
== END 2016-10-13 20:00 | disposition home or self-care (01) | DRG 190 ==
LOC: ED 18:55 → MEDSURG A 22:39
PROVIDERS: ADMIT General Practice; ATTEND General Practice
DX: J44.1 Chronic obstructive pulmonary disease with (acute) exacerbation (principal); J96.01 Acute respiratory failure with hypoxia; B34.9 Viral infection, unspecified; R50.9 Fever, unspecified; R11.2 Nausea with vomiting, unspecified; R51 Headache; R91.1 Solitary pulmonary nodule; N28.1 Cyst of kidney, acquired; F17.200 Nicotine dependence, unspecified, uncomplicated; Z86.59 Personal history of other mental and behavioral disorders; Z79.899 Other long term (current) drug therapy
CPT/HCPCS: 36415; 80053; 82550; 82803; 83880; 84145; 84484; 84703; 85025; 85379; 86710; 87040; 87651; 87804; 87880; 93005; 93010; 94640; 96361; 96366; 96374; 99223; 99239; 99284

== ENCOUNTER 2016-10-22 08:48 | Outpatient (CLI) | END 2016-10-22 08:49 | disposition home or self-care (01) | LOC: CAR 08:48 | PROVIDERS: ATTEND Nurse Practitioner Family | DX: J44.1 Chronic obstructive pulmonary disease with (acute) exacerbation (principal) ==

== ENCOUNTER 2016-10-23 08:14 | Outpatient (CLI) ==
--- NOTE | 2016-10-23 09:07 | US ---
EXAM: Ultrasound retroperitoneal HISTORY: Renal cyst. COMPARISON: CT 10/11/2016. TECHNIQUE: Multiple mendoza scale and color Doppler images. FINDINGS: Right kidney measures 10.7 x 4.1 x 3.5 cm. The left kidney measures 9.8 x 4.6 x 5.2 cm. Thin-walled circumscribed anechoic mass with posterior enhancement measures 1 x 0.9 x 0.9 cm in the inferior right kidney. Similar appearing lesion in the mid left kidney measures 1.6 x 1.5 x 1.3 cm . Cortical echogenicity is normal. There is no hydronephrosis. Urinary bladder is not identified, likely collapsed. IMPRESSION: Simple bilateral renal cysts.
== END 2016-10-23 08:15 | disposition home or self-care (01) ==
LOC: RAD 08:14
PROVIDERS: ATTEND Nurse Practitioner Family
DX: N28.1 Cyst of kidney, acquired (principal)
CPT/HCPCS: 76770

== ENCOUNTER 2016-11-04 10:24 | Outpatient (CLI) ==
--- NOTE | 2016-11-04 10:50 | DI ---
EXAM: LEFT KNEE. HISTORY: Left knee pain FINDINGS: Left knee four view. Articular cartilage width is normal. There is no fracture or joint effusion. Bone density and soft tissues are within normal limits. IMPRESSION: Within normal limits.
== END 2016-11-04 10:25 | disposition home or self-care (01) ==
LOC: RAD 10:24
PROVIDERS: ATTEND Nurse Practitioner Family
DX: M25.562 Pain in left knee (principal)

== ENCOUNTER 2016-11-06 07:58 | Outpatient (CLI) ==
--- NOTE | 2016-11-06 09:47 | MRI ---
EXAM: MRI left knee without contrast. HISTORY: Pain left knee. Swelling. Mainly around kneecap. No known injury. No left knee surgery reported.. TECHNIQUE: Using a local extremity coil on a high field strength magnet multiplanar multisequence m agnet resonance imaging was performed of the left knee without intravenous or intra-articular gadoli nium contrast. COMPARISON: Four view plain film examination left knee 11/04/2016. FINDINGS: Within the medial compartment the medial meniscus is intact without discrete surfacing me niscal tear. The medial compartment cartilage congruent without focal underlying subchondral edema. Within the lateral compartment the lateral meniscus is intact without discrete surfacing meniscal te ar. The lateral compartment cartilage congruent without focal underlying subchondral edema. Within the patellofemoral compartment the patella seated with intact patellar attachment of the medi al and lateral patellar retinaculum. Approximate 17 mm wide by 14 mm craniocaudad area of chondrosi s and cartilage fibrillation/ulceration over the medial facet with underlying subchondral remodeling /cyst formation. The trochlear groove cartilage relatively congruent. Early productive osteophyte formation. Small/moderate left knee effusion. Prominent superior and medial plica. No osteochondral loose bod ies. Intact anterior and posterior cruciate ligament fibers. The extensor mechanism is intact. Th e medial collateral ligament as well as lateral collateral ligament complex and posterolateral corne r intact. Overall bone marrow signal intensity shows no acute fracture stress fracture or bone eros ions.. IMPRESSION: No discrete surfacing meniscal tear. Patellar chondrosis/chondromalacia patella. Small/moderate sized left effusion. Prominent superior and medial plica. Intact cruciate and collateral ligaments. No acute fracture/stress fracture.
== END 2016-11-06 07:59 | disposition home or self-care (01) ==
LOC: RAD 07:58
PROVIDERS: ATTEND Nurse Practitioner Family
DX: M25.562 Pain in left knee (principal)

== ENCOUNTER 2016-11-12 13:46 | Outpatient (CLI) ==
--- NOTE | 2016-11-12 14:47 | DI ---
EXAM: Chest two view, frontal and lateral views. HISTORY: Chronic obstructive pulmonary disease with acute exacerbation. COMPARISON: 10/11/2016. FINDINGS: The heart size is normal. There is no pulmonary vascular congestion. The lungs are pamela r. No pleural effusion or pneumothorax is seen. No acute osseous abnormality identified. IMPRESSION: No acute cardiopulmonary process.
== END 2016-11-12 13:47 | disposition home or self-care (01) ==
LOC: RAD 13:46
PROVIDERS: ATTEND Nurse Practitioner Family
DX: J44.1 Chronic obstructive pulmonary disease with (acute) exacerbation (principal); R11.2 Nausea with vomiting, unspecified

== ENCOUNTER 2016-12-11 11:40 | Emergency (ER) ==
[2016-12-11 11:46] VITALS: BP 139/85; TEMP 98.9; BMI 31.4
[2016-12-11] MEDS ORDERED: ZOFRAN 4 MG/2 ML IVP STA (11:55)
[2016-12-11] MEDS ORDERED: SODIUM CHLORIDE 1,000 ML IV STA (11:56)
--- NOTE | 2016-12-11 11:57 | ED.PDOC ---
General ED Provider: Dr. ANGELIA PATTON JR Chief Complaint: Nausea/Vomiting Stated Complaint: endoscopy outpatient yesterday acid reflux--onset of n/v this am--instructed to hospital if vomiting--[End]98.9 88 20 95% 139/85 emesis without blood--states unable to eat this am--emesis has mucous and whatever food she tries to eat--sl diarrhea at times--left restorationism at noon yesterday-- did fine at home--vomiting started this am--procedure done by dr hooker[End] Time Seen by Physician: 11:56 Information Source: Patient Exam Limitations: No limitations Primary Care Provider: EMILY MURRELL Nursing and Triage Documentation Reviewed and Agree: No Review of Systems - Review Of Systems Constitutional: Reports: Fever, Malaise, Weakness Eyes: Reports: No symptoms Ears, Nose, Mouth, Throat: Reports: No symptoms Respiratory: Reports: No symptoms GI: Reports: Nausea, Vomiting : Reports: No symptoms Musculoskeletal: Reports: No symptoms Skin: Reports: No symptoms Neurological: Reports: No symptoms Endocrine: Reports: No symptoms Hematologic/Lymphatic: Reports: No symptoms All Other Systems: Other Past Medical History - Past Medical History Endocrine: Reports: None Cardiovascular: Reports: None Respiratory: Reports: COPD Hematological: Reports: None Gastrointestinal: Reports: GERD, Unknown Genitourinary: Reports: None Neuro/Psych: Reports: Depression Musculoskeletal: Reports: None Cancer: Reports: None Last Menstrual Period: 4 month ago - Surgical History General Surgical History: Reports: Tubal ligation, Orthopedic (carpal tunnel right hand[) - Family History Family History: Reports: Unknown - Social History Smoking Status: Current every day smoker, Heavy tobacco smoker Hx Substance Use: No Alcohol Screening: None Physical Exam - Physical Exam Appearance: Ill-appearing Ill-appearing: Mild Pain Distress: Mild Eyes: MARIA ELENA, EOMI, Conjunctiva clear ENT: Ears normal, Nose normal, Oropharynx normal Neck: Supple Respiratory: Airway patent, Breath sounds clear, Breath sounds equal, Respirations nonlabored Cardiovascular: RRR, Pulses normal, No rub, No murmur GI/: Soft, Nontender, No Organomegaly, Bowel sounds hypoactive Musculoskeletal: Normal strength, ROM intact, No edema, No calf tenderness Skin: Warm, Dry, Normal color Neurological: Sensation intact, Motor intact, Reflexes intact, Cranial nerves intact, Alert, Oriented Psychiatric: Affect appropriate, Mood appropriate Interpretation - Radiology Interpretation Radiology Interpretation By: Radiologist Radiology Results: Negative Exam Interpreted: Other ("nonspecific nonobstructive bowel gas pattern") Critical Care Note - Critical Care Note Total Time (mins): 0 Course - Course Orders, Labs, Meds: Lab Review 12/11/16 13:05 Urine Color Yellow Urine Clarity Clear Urine pH 5.5 Ur Specific [place] 1.015 Urine Protein Negative Urine Glucose (UA) Negative Urine Ketones Negative Urine Blood Trace-lysed Urine Nitrite Negative Urine Bilirubin Negative Urine Urobilinogen 0.2 Ur Leukocyte Esterase Negative Urine Microscopic RBC 2-5 Urine Microscopic WBC 0-2 Ur Squamous Epith Cells 2-5 Urine Bacteria Trace Urine Mucus 1+ Orders Category Date Time Status IV [ED IV/MEDIPORT/POWERPORT] .ONCE EMERGENCY 12/11/16 11:56 Active UA [URINALYSIS C & S IF INDICATED] Stat LAB 12/11/16 13:05 Completed 0.9 % Sodium Chloride [Saline Flush] MEDS 12/11/16 11:56 Active 1 syr IVF PRN PRN Ondansetron HCl/Pf [Zofran 4 mg/2 ml] MEDS 12/11/16 11:55 Discontinued 4 mg IVP ONCE STA Sodium Chloride 0.9% [Sodium Chloride] 1,000 ml MEDS 12/11/16 11:56 Discontinued IV BOLUS ABDOMEN, SERIES FLAT & UPRIGHT Stat RADS 12/11/16 12:02 Completed Medications Generic Name Dose Route Start Last Admin Trade Name Freq PRN Reason Stop Dose Admin Sodium Chloride 1 syr 12/11/16 11:56 12/11/16 12:32 Saline Flush IVF 1 syr PRN PRN Administration To flush IV Discontinued Medications Generic Name Dose Route Start Last Admin Trade Name Freq PRN Reason Stop Dose Admin Sodium Chloride 1,000 mls @ 1,000 mls/hr 12/11/16 11:56 12/11/16 12:32 Sodium Chloride IV 12/11/16 12:55 1,000 mls/hr BOLUS STA Administration Ondansetron HCl 4 mg 12/11/16 11:55 12/11/16 12:33 Zofran 4 Mg/2 Ml IVP 12/11/16 11:56 4 mg ONCE STA Administration Vital Signs: Temp Pulse Resp BP Pulse Ox 12/11/16 11:41 98.9 F 88 20 139/85 95 Departure - Departure Time of Disposition: 13:37 Disposition: HOME SELF-CARE Discharge Problem: Nausea, Vomiting Instructions: Acute Nausea and Vomiting (ED) Condition: Good Pt referred to PMD for follow-up: Yes Additional Instructions: clear liquids for 12 hours then usual diet call PMD for routine follow up return if uncontrolled vomiting may try zofran if nausea- and discuss with your physician Prescriptions: Ondansetron HCl [Zofran Tab] 4 mg PO QID PRN #12 tablet PRN Reason: Nausea / Vomiting Allergies/Adverse Reactions: Allergies meloxicam [From Mobic] Allergy (Intermediate, Verified 12/11/16 13:02) Chest Tightness diclofenac Allergy (Mild, Verified 12/11/16 13:02) Unknown ampicillin Adverse Reaction (Verified 12/11/16 13:02) azithromycin [From Zithromax] Adverse Reaction (Verified 12/11/16 13:02) fluoxetine [From Prozac] Adverse Reaction (Verified 12/11/16 13:02) naproxen Adverse Reaction (Verified 12/11/16 13:02) venlafaxine [From Effexor] Adverse Reaction (Verified 12/11/16 13:02) Home Medications: Ambulatory Orders Albuterol Sulfate 0.083% Neb [Albuterol 0.083% Neb] 1 vial NEB ONCE PRN Albuterol Sulfate [Proair Hfa] 2 puff IH ONCE PRN 10/09/16 Budesonide/Formoterol Fumarate [Symbicort 160-4.5 Mcg Inhaler] 2 puff IH BID Gabapentin 300 mg PO BID 10/09/16 Guaifenesin [Mucinex] 600 mg PO ONCE 10/09/16 Methocarbamol 750 mg PO BEDTIME 10/09/16 Omeprazole [Prilosec] 20 mg PO QDAC 10/09/16 Tramadol HCl 50 mg PO Q4HR PRN 10/09/16 Levofloxacin [Levaquin] 500 mg PO DAILY #5 tablet 10/13/16 Prednisone 10 mg PO DIRECTED #15 tablet 10/13/16 Budesonide/Formoterol Fumarate [Symbicort 160-4.5 Mcg Inhaler] 10.2 gm IH 2 p BID 10/21/16 Gabapentin 300 mg PO BID 10/21/16 Guaifenesin [Mucinex] 600 mg PO d 10/21/16 Methocarbamol 750 mg PO BEDTIME 10/21/16 Omeprazole Magnesium [Prilosec Otc] 20 mg PO d 10/21/16 Tramadol HCl 50 mg PO every 4 hours prn 10/21/16 Ondansetron HCl [Zofran Tab] 4 mg PO QID PRN #12 tablet 12/11/16
--- NOTE | 2016-12-11 12:28 | DI ---
Exam: Two x-rays of the abdomen. Comparison: CTA performed 10/11/2016. Reason for exam: Vomiting. FINDINGS: The bowel gas pattern is nonspecific and nonobstructive. Air is seen to the level of the rectosigmoid. There is similar appearing high density material in the right lower quadrant. The im aged osseous structures are unremarkable without acute fracture. Impression: Nonspecific, nonobstructive bowel gas pattern.
[2016-12-11 13:19] LABS: BILIRUBIN,URINE Negative (NEGATIVE); KETONES,URINE Negative (NEGATIVE); LEUKOCYTE ESTERASE ,URINE Negative (NEGATIVE); NITRITE,URINE Negative (NEGATIVE); PH,URINE 5.5 (5-9); PROTEIN,URINE Negative (NEGATIVE); URINE, BLOOD Trace-lysed (NEGATIVE)
[2016-12-11 13:25] LABS: ADD URINE MICROSCOPIC YES
[2016-12-11 13:26] LABS: BACTERIA,URINE TRACE (NOT PRESENT)
== END 2016-12-11 13:49 | disposition home or self-care (01) ==
LOC: ED 11:40
DX: R11.2 Nausea with vomiting, unspecified (principal); R19.7 Diarrhea, unspecified; R53.1 Weakness; K21.9 Gastro-esophageal reflux disease without esophagitis; Z98.890 Other specified postprocedural states; F17.210 Nicotine dependence, cigarettes, uncomplicated; Z79.899 Other long term (current) drug therapy
CPT/HCPCS: 81001; 96361; 96374; 99283

== ENCOUNTER 2016-12-13 15:18 | Inpatient (IN) ==
[2016-12-13 15:44] VITALS: BMI 30.7
[2016-12-13 15:53] LABS: BASOPHILS # (AUTO) 0.1 K/uL (0-0.2); BASOPHILS % (AUTO) 0.8 % (0.0-3.0); EOSINOPHILS # (AUTO) 0.1 K/ul (0.0-0.7); EOSINOPHILS % (AUTO) 1.2 % (0.0-7.0); HEMATOCRIT 47.6 % (37.0-47.0); HEMOGLOBIN 16.1 g/dl (12.0-16.0); IMMATURE GRANULOCYTE % (AUTO) 0.3 % (0.0-5.0); LYMPHOCYTES % (AUTO) 26.5 (10.0-50.0); MEAN CORPUSCULAR HEMOGLOBIN 30.5 pg (27.0-31.0); MEAN CORPUSCULAR HGB CONC 33.8 (31.8-35.4); MEAN CORPUSCULAR VOLUME 90.2 fl (81.0-99.0); MONOCYTES # (AUTO) 0.5 K/uL (0.4-2.0); MONOCYTES % (AUTO) 6.1 (0-10); NEUTROPHILS % (AUTO) 65.1; PLATELET COUNT 306 10^3/uL (140-440); RED BLOOD COUNT 5.28 10^6/ul (4.20-5.40); WHITE BLOOD COUNT 7.69 K/ul (4.6-10.2)
[2016-12-13] MEDS ORDERED: PROAIR HFA IH PRN (15:53)
[2016-12-13] MEDS ORDERED: ALBUTEROL SULFATE 0.63 MG IH PRN (15:53)
[2016-12-13] MEDS ORDERED: NON-FORMULARY MEDICATION (Ondansetron Hcl [Zofran] 8 MG) PO PRN (15:53)
[2016-12-13] MEDS ORDERED: ZOFRAN TAB PO PRN (16:04)
[2016-12-13 16:07] LABS: BILIRUBIN,URINE 2+ (NEGATIVE); KETONES,URINE 3+ (NEGATIVE); LEUKOCYTE ESTERASE ,URINE Negative (NEGATIVE); NITRITE,URINE Negative (NEGATIVE); PH,URINE 5.5 (5-9); PROTEIN,URINE Trace (NEGATIVE); URINE, BLOOD 2+ (NEGATIVE)
[2016-12-13] MEDS: SODIUM CHLORIDE 1,000 ML IV SCH (16:08)
[2016-12-13 16:13] LABS: ALBUMIN 4.6 g/dL (3.4-5.0); ALBUMIN/GLOBULIN RATIO 1.24; ANION GAP 16.7; BILIRUBIN,TOTAL 0.82 mg/dL (0.00-1.20); BUN/CREATININE RATIO 24.69; CALCIUM 9.9 mg/dL (8.2-10.2); CREATININE 0.81 mg/dL (0.60-1.30); POTASSIUM 3.7 mmol/L (3.5-5.10); TOTAL PROTEIN 8.3 g/dL (6.4-8.2)
[2016-12-13 16:14] LABS: ADD URINE MICROSCOPIC YES
[2016-12-13 16:16] LABS: BACTERIA,URINE 3+ (NOT PRESENT)
[2016-12-13] MEDS: ZOFRAN 4 MG/2 ML IVP SCH ×2 (16:33→21:05)
[2016-12-13] MEDS: SOLU-MEDROL 125 MG IVP SCH ×2 (16:34→21:07)
--- NOTE | 2016-12-13 17:07 | CT ---
EXAM: CT abdomen pelvis without contrast HISTORY: Abdominal pain, vomiting/diarrhea COMPARISON: 10/11/2016 TECHNIQUE: CT abdomen pelvis performed without intravenous contrast. Coronal and sagittal reformat south images obtained. FINDINGS: Lung bases clear. No free air. No acute abnormalities of the bones. Heart normal in si ze. Evaluation organ parenchyma limited without contrast. Liver appears normal. Gallbladder appea rs normal. Pancreas appears normal. Spleen appears normal. Adrenals appear normal. No hydronephr osis or nephrolithiasis. Stable left renal cyst. Aorta normal in caliber. Mild atherosclerosis. Uterus unremarkable. Bladder only mildly distended and poorly evaluated, grossly unremarkable. Sma ll fat-containing umbilical hernia. Stomach appears normal. No dilated loops small bowel. Appendi x appears normal. Several pills are noted in the right colon. Colon otherwise unremarkable. No in flammatory stranding identified in the abdomen pelvis. IMPRESSION: No acute inflammatory process identified in the abdomen or pelvis.
[2016-12-13] MEDS: DUONEB NEB SCH (19:20)
[2016-12-13] MEDS ORDERED: NON-FORMULARY MEDICATION (Acetaminophen [Tylenol Arthritis] 650 MG) PO SCH ×22 (21:00)
[2016-12-13] MEDS ORDERED: NON-FORMULARY MEDICATION (Methocarbamol [Methocarbamol] 750 MG) PO SCH (21:00)
[2016-12-13] MEDS: ROBAXIN PO SCH (21:01)
[2016-12-13] MEDS: MUCINEX PO SCH (21:02)
[2016-12-13] MEDS: NEURONTIN PO SCH (21:03)
[2016-12-13] MEDS: TYLENOL PO SCH (21:03)
[2016-12-13] MEDS: SYMBICORT 160-4.5 MCG INHALER IH SCH (21:04)
[2016-12-13] MEDS ORDERED: ROCEPHIN ONE (21:12)
[2016-12-13] MEDS ORDERED: ROCEPHIN 1 GM in SODIUM CHLORIDE 50 ML IV SCH (21:30)
[2016-12-14] MEDS: ZOFRAN 4 MG/2 ML IVP SCH ×4 (00:21→17:08)
[2016-12-14] MEDS: ULTRAM PO PRN ×2 (03:20→09:49)
[2016-12-14] MEDS: SOLU-MEDROL 125 MG IVP SCH ×3 (04:25→22:56)
[2016-12-14 04:26] LABS: BASOPHILS % (AUTO) 0.2 % (0.0-3.0); HEMATOCRIT 44.7 % (37.0-47.0); IMMATURE GRANULOCYTE % (AUTO) 0.3 % (0.0-5.0); MEAN CORPUSCULAR HEMOGLOBIN 29.9 pg (27.0-31.0); MEAN CORPUSCULAR HGB CONC 33.6 (31.8-35.4); MONOCYTES # (AUTO) 0.1 K/uL (0.4-2.0); MONOCYTES % (AUTO) 1.3 (0-10); NEUTROPHILS # (AUTO) 5.3 K/ul (2.0-6.9); NEUTROPHILS % (AUTO) 83.2; PLATELET COUNT 313 10^3/uL (140-440); RED BLOOD COUNT 5.02 10^6/ul (4.20-5.40)
[2016-12-14 04:43] LABS: ALBUMIN 4.2 g/dL (3.4-5.0); ALBUMIN/GLOBULIN RATIO 1.2; ANION GAP 19.2; BILIRUBIN,TOTAL 0.47 mg/dL (0.00-1.20); BUN/CREATININE RATIO 33.78; CALCIUM 9.5 mg/dL (8.2-10.2); CREATININE 0.74 mg/dL (0.60-1.30); POTASSIUM 4.2 mmol/L (3.5-5.10); TOTAL PROTEIN 7.7 g/dL (6.4-8.2)
[2016-12-14] MEDS: DUONEB NEB SCH ×3 (05:13→21:09)
[2016-12-14] MEDS: PRILOSEC PO SCH (05:59)
[2016-12-14] MEDS: NEURONTIN PO SCH ×2 (09:39→21:28)
[2016-12-14] MEDS: SYMBICORT 160-4.5 MCG INHALER IH SCH ×2 (09:39→21:27)
[2016-12-14] MEDS: SODIUM CHLORIDE 1,000 ML IV SCH (12:39)
[2016-12-14] MEDS ORDERED: ROCEPHIN 1 GM in SODIUM CHLORIDE 50 ML IV SCH (21:00)
[2016-12-14] MEDS: ROBAXIN PO SCH (21:27)
[2016-12-14] MEDS: TYLENOL PO SCH (21:28)
[2016-12-14] MEDS: MUCINEX PO SCH (21:28)
[2016-12-15] MEDS: ZOFRAN 4 MG/2 ML IVP SCH ×4 (00:33→17:00)
[2016-12-15 04:21] LABS: BASOPHILS % (AUTO) 0.3 % (0.0-3.0); EOSINOPHILS % (AUTO) 0.2 % (0.0-7.0); HEMATOCRIT 40.1 % (37.0-47.0); HEMOGLOBIN 13.6 g/dl (12.0-16.0); IMMATURE GRANULOCYTE % (AUTO) 0.4 % (0.0-5.0); LYMPHOCYTES # (AUTO) 3.3 K/uL (0.60-3.4); LYMPHOCYTES % (AUTO) 32.9 (10.0-50.0); MEAN CORPUSCULAR HEMOGLOBIN 30.1 pg (27.0-31.0); MEAN CORPUSCULAR HGB CONC 33.9 (31.8-35.4); MEAN CORPUSCULAR VOLUME 88.7 fl (81.0-99.0); MONOCYTES # (AUTO) 0.7 K/uL (0.4-2.0); MONOCYTES % (AUTO) 7.1 (0-10); NEUTROPHILS % (AUTO) 59.1; PLATELET COUNT 291 10^3/uL (140-440); RED BLOOD COUNT 4.52 10^6/ul (4.20-5.40); WHITE BLOOD COUNT 10.13 K/ul (4.6-10.2)
[2016-12-15 04:40] LABS: ALBUMIN 3.6 g/dL (3.4-5.0); ALBUMIN/GLOBULIN RATIO 1.29; ANION GAP 13.6; BILIRUBIN,TOTAL 0.52 mg/dL (0.00-1.20); BUN/CREATININE RATIO 25.35; CALCIUM 9.1 mg/dL (8.2-10.2); CREATININE 0.71 mg/dL (0.60-1.30); POTASSIUM 3.6 mmol/L (3.5-5.10); TOTAL PROTEIN 6.4 g/dL (6.4-8.2)
[2016-12-15] MEDS: SOLU-MEDROL 125 MG IVP SCH ×2 (04:49→13:01)
[2016-12-15] MEDS: DUONEB NEB SCH ×2 (05:10→13:05)
[2016-12-15] MEDS: PRILOSEC PO SCH (05:41)
[2016-12-15] MEDS: SYMBICORT 160-4.5 MCG INHALER IH SCH (09:28)
[2016-12-15] MEDS: NEURONTIN PO SCH (09:28)
[2016-12-15] MEDS: SODIUM CHLORIDE 1,000 ML IV SCH (09:35)
[2016-12-15 15:59] VITALS: BP 117/80; TEMP 97.8
--- NOTE | 2017-01-02 11:58 | PN ---
DATE OF SERVICE: 12/14/16 SUBJECTIVE: The patient was admitted with acute gastroenteritis, COPD exacerbation and bronchitis. CT scan of the abdomen and pelvis was negative. The patient says that she feels some better today and wants to try some more fluids and see. REVIEW OF SYSTEMS: CONSTITUTIONAL: No fever, no chills. HEENT: Normal. ENDOCRINE: No weight gain, no weight loss. CVS: No angina symptoms. No CHF symptoms. No palpitations. No atypical chest pain for CAD. Shortness of breath is better. No PND, no orthopnea. RESPIRATORY: Some cough is present, no hemoptysis. GI: No nausea, no vomiting. No abdominal pain. : No hematuria. No polyuria. MUSCULOSKELETAL:. No joint swelling. PSYCHIATRIC: Not anxious. No depression. No suicidal thoughts. No homicidal thoughts. SKIN: Intact. No rash. PHYSICAL EXAMINATION: V/S: Blood pressure 122/79, respiratory rate 18, heart rate 76, temperature 97.5. HEENT: Normocephalic, atraumatic. Mucosa dry. NECK: Supple. No JVD, no carotid bruit. No lymphadenopathy. LUNGS: Decreased and basilar crackles. No rales or rhonchi. HEART: S1, S2 normal. No S3. No murmur, gallop or regurgitation. ABDOMEN: Soft, nontender. Bowel sounds active. No rigidity. No rebound or guarding. No CVA tenderness. EXTREMITIES: No clubbing, cyanosis or pedal edema. MUSCULOSKELETAL: No joint swelling. NEUROLOGIC: Awake, alert, oriented times three. No focal deficit. LYMPHATIC: No lymph nodes palpable. SKIN: Intact. LABS: WBC 6.40, hgb 15.0, hct 44.7, plt count 313, sodium 140, potassium 4.2, chloride 104, bicarb 21, BUN 25, creatinine 7.4 ASSESSMENT: 1. Acute gastroenteritis 2. COPD exacerbation secondary to bronchitis 3. Recent upper endoscopy 4. COPD 5. Osteoarthritis PLAN: 1. Full liquid diet 2. DUO NEBS 3. Solu-Medrol 60mg Q 8 hours 4. Rocephin 1 gram daily 5. Zofran PRN 6. Daily I&O's Will follow the patient in daily rounds. TIME SPENT: More than 30 minutes MTDD
--- NOTE | 2017-02-20 12:04 | DS ---
DATE OF SERVICE: 12/15/16 FINAL DIAGNOSIS: 1. ACUTE GASTROENTERITIS 2. CHRONIC OBSTRUCTIVE PULMONARY DISEASE EXACERBATION SECONDARY TO BRONCHITIS 3. RECENT ENDOSCOPY 4. CHRONIC OBSTRUCTIVE PULMONARY DISEASE 5. OSTEOARTHRITIS 6. HISTORY OF DEPRESSION 7. HISTORY OF NICOTINE USE 8. RIGHT CARPAL TUNNEL SURGERY PLAN: 1. Discharge the patient home. 2. Follow up with Arianna Buck on for the appointment. 3. Continue the rest of the home medications. MEDICATIONS AT DISCHARGE: Albuterol inhaler every daily prn Neurontin 300 mg p.o. twice daily Prilosec 20 mg p.o. daily Zofran 8 mg p.o. twice daily Tramadol 50 mg p.o. three times daily NEW PRESCRIPTIONS: Keflex 500 mg twice a day for five days. Prednisone 10 mg twice a day for five days. DIET INSTRUCTIONS: Cardiac and healthy diet. ACTIVITY: As much as tolerated. DISEASE SPECIFIC EDUCATION: About COPD, pneumonia were discussed with the patient. She verbalized understanding. HOSPITAL COURSE: Divya Magaña, who is a 51 year old female, came to the office initially, who recently had an endoscopy done. Ever since the patient is having more nausea, vomiting, shortness of breath, cough and congestion. At that time, the patient is admitted to the hospital from the office directly. CT of abdomen and pelvis done which did not show any acute inflammatory process. The patient was given some IV fluids and breathing treatments, DuoNebs given. Zofran for nausea was given. Solu-Medrol 60 mg every 8 hours was given. Tramadol and home medications and Rocephin 1 gram daily given. Chest x-ray did not show any infiltrate, but with the given treatment the patient slowly started feeling better. Coughing is getting better. Shortness of breath has improved. Nausea and vomiting was resolved with the medications. As the patient was feeling better, the patient was up and about and started on clear liquid diet. She tolerated this well and did not have any problems. No fever, no chills during the hospitalization. Saturations were maintained. Labs were steady. At that time, the patient is discharged back home and explained about the medication compliance, probiotics and yogurt. She verbalized understanding. Time spent on the patient is more than 55 minutes today. [facility]
== END 2016-12-15 18:08 | disposition home or self-care (01) | DRG 392 ==
LOC: MEDSURG A 15:18 → OBSVTOIN 15:18 → INTOOBSV 15:18
PROVIDERS: ADMIT Emergency Medicine; ATTEND Emergency Medicine
DX: K52.9 Noninfective gastroenteritis and colitis, unspecified (principal); J44.0 Chronic obstructive pulmonary disease with (acute) lower respiratory infection; J44.1 Chronic obstructive pulmonary disease with (acute) exacerbation; J20.9 Acute bronchitis, unspecified; R06.02 Shortness of breath; M19.90 Unspecified osteoarthritis, unspecified site; Z86.59 Personal history of other mental and behavioral disorders; Z87.891 Personal history of nicotine dependence; Z79.899 Other long term (current) drug therapy; Z98.890 Other specified postprocedural states
CPT/HCPCS: 36415; 80053; 81001; 82150; 83690; 85025; 87086; 94640; 99223; 99233; 99239

== ENCOUNTER 2016-12-31 11:24 | Outpatient (CLI) ==
[2016-12-31 11:51] LABS: BASOPHILS % (AUTO) 0.5 % (0.0-3.0); EOSINOPHILS # (AUTO) 0.1 K/ul (0.0-0.7); EOSINOPHILS % (AUTO) 1.5 % (0.0-7.0); IMMATURE GRANULOCYTE % (AUTO) 0.2 % (0.0-5.0); LYMPHOCYTES # (AUTO) 1.7 K/uL (0.60-3.4); LYMPHOCYTES % (AUTO) 19.4 (10.0-50.0); MEAN CORPUSCULAR HEMOGLOBIN 30.2 pg (27.0-31.0); MEAN CORPUSCULAR HGB CONC 33.3 (31.8-35.4); MEAN CORPUSCULAR VOLUME 90.5 fl (81.0-99.0); MONOCYTES # (AUTO) 0.6 K/uL (0.4-2.0); NEUTROPHILS # (AUTO) 6.2 K/ul (2.0-6.9); NEUTROPHILS % (AUTO) 71.4; PLATELET COUNT 293 10^3/uL (140-440); RED BLOOD COUNT 4.64 10^6/ul (4.20-5.40); WHITE BLOOD COUNT 8.63 K/ul (4.6-10.2)
--- NOTE | 2016-12-31 11:52 | DI ---
EXAM: Two-view chest HISTORY: Chronic obstructive pulmonary disease TECHNIQUE: Frontal and lateral views of the chest were obtained. FINDINGS: The heart is normal size. Lungs are clear. The pulmonary vasculature appears normal. Th e osseous structures and mediastinal contours are normal. IMPRESSION: No active cardiopulmonary disease.
[2016-12-31 12:10] LABS: ALBUMIN 3.8 g/dL (3.4-5.0); ALBUMIN/GLOBULIN RATIO 1.19; ANION GAP 15.6; BILIRUBIN,TOTAL 0.42 mg/dL (0.00-1.20); BUN/CREATININE RATIO 24.65; CALCIUM 8.8 mg/dL (8.2-10.2); CREATININE 0.73 mg/dL (0.60-1.30); POTASSIUM 3.6 mmol/L (3.5-5.10)
== END 2016-12-31 11:25 | disposition home or self-care (01) ==
LOC: RAD 11:24
PROVIDERS: ATTEND Nurse Practitioner Family
DX: R11.2 Nausea with vomiting, unspecified (principal); J44.9 Chronic obstructive pulmonary disease, unspecified
CPT/HCPCS: 36415; 80053; 82150; 83690; 85025

== ENCOUNTER 2017-01-08 11:51 | Outpatient (CLI) ==
[2017-01-08 13:40] LABS: COCAIN SCREEN,URINE NEGATIVE (NEGATIVE)
== END 2017-01-08 11:52 | disposition home or self-care (01) ==
LOC: LAB 11:51
PROVIDERS: ATTEND Nurse Practitioner Family
DX: F11.20 Opioid dependence, uncomplicated (principal)
CPT/HCPCS: 80306

== ENCOUNTER 2017-01-09 08:19 | Outpatient (CLI) ==
--- NOTE | 2017-01-09 12:02 | MRI ---
EXAM: MRI of the right shoulder without contrast COMPARISON: None available HISTORY: Right shoulder pain. Rotator cuff tendonitis. TECHNIQUE: Multiplanar noncontrast MR images of the right shoulder were acquired using a 1.2 Tressa magnet. FINDINGS: No recent radiographs of the right shoulder are available for comparison and radiographic correlation is recommended. There is rotator cuff tendinosis most severe involving the insertional fibers of the supraspinatus w ith moderate infraspinatus and subscapularis tendinosis. There is a tear of the insertional fibers of the supraspinatus with a full-thickness component measuring 2.1 cm in medial to lateral dimension anteriorly spanning nearly the full width of the tendon with suggestion of some residual intact fib ers more posteriorly. Partial-thickness tear with articular surface/intrasubstance components invol ving the remaining posterior fibers extending through the adjacent anterior portion of the infraspin atus. Glenohumeral joint effusion with fluid extending into the subacromial/subdeltoid bursa via th e full-thickness rotator cuff defect. Degenerative spurring of the greater tuberosity. Limited assessment of the glenoid labrum on this non arthrographic study. Moderate glenohumeral martinez nt osteoarthrosis without an acute fracture or dislocation. The long head of the biceps is located within the bicipital groove and is intact. Marked hypertrophic degenerative changes of the acromioclavicular joint with most pronounced osteoph ytes arising from the undersurface of the distal clavicle. No evidence of an os acromiale or abnorm al widening of the acromioclavicular joint space. No soft tissue mass identified. IMPRESSION: 1. Rotator cuff tendinosis which is most severe involving the supraspinatus. Full-thickness, near full width tear of the supraspinatus with partial thickness tear involving the far posterior inserti onal fibers and extending through the adjacent infraspinatus. 2. Glenohumeral joint effusion with fluid extending into the subacromial/subdeltoid bursa via the f ull-thickness rotator cuff defect. 3. Marked hypertrophic degenerative changes of the acromioclavicular joint. 4. Moderate glenohumeral joint osteoarthrosis.
== END 2017-01-09 08:20 | disposition home or self-care (01) ==
LOC: RAD 08:19
PROVIDERS: ATTEND Nurse Practitioner Family
DX: M75.81 Other shoulder lesions, right shoulder (principal)

== ENCOUNTER 2017-01-11 15:20 | Emergency (ER) ==
[2017-01-11 15:25] VITALS: BP 127/85; TEMP 99.7; BMI 30.4
[2017-01-11 16:00] LABS: BASOPHILS % (AUTO) 0.3 % (0.0-3.0); EOSINOPHILS # (AUTO) 0.1 K/ul (0.0-0.7); EOSINOPHILS % (AUTO) 1.7 % (0.0-7.0); HEMATOCRIT 44.2 % (37.0-47.0); HEMOGLOBIN 14.9 g/dl (12.0-16.0); IMMATURE GRANULOCYTE % (AUTO) 0.3 % (0.0-5.0); LYMPHOCYTES # (AUTO) 0.7 K/uL (0.60-3.4); LYMPHOCYTES % (AUTO) 9.5 (10.0-50.0); MEAN CORPUSCULAR HEMOGLOBIN 30.5 pg (27.0-31.0); MEAN CORPUSCULAR HGB CONC 33.7 (31.8-35.4); MEAN CORPUSCULAR VOLUME 90.6 fl (81.0-99.0); MONOCYTES # (AUTO) 0.3 K/uL (0.4-2.0); MONOCYTES % (AUTO) 3.7 (0-10); NEUTROPHILS # (AUTO) 6.3 K/ul (2.0-6.9); NEUTROPHILS % (AUTO) 84.5; PLATELET COUNT 273 10^3/uL (140-440); RED BLOOD COUNT 4.88 10^6/ul (4.20-5.40); WHITE BLOOD COUNT 7.48 K/ul (4.6-10.2)
[2017-01-11 16:12] LABS: BILIRUBIN,URINE 1+ (NEGATIVE); KETONES,URINE Trace (NEGATIVE); LEUKOCYTE ESTERASE ,URINE Negative (NEGATIVE); NITRITE,URINE Negative (NEGATIVE); PH,URINE 5.5 (5-9); PROTEIN,URINE 2+ (NEGATIVE); URINE, BLOOD 3+ (NEGATIVE)
--- NOTE | 2017-01-11 16:13 | CT ---
EXAM: CT abdomen and pelvis without contrast. HISTORY: Abdominal pain. TECHNIQUE: Multi-slice transaxial helical CT. Coronal and sagittal reformatons were performed. COMPARISON: 12/13/2016 FINDINGS: The heart is normal in size. Calcified granuloma is present within the left lung base. Otherwise th e lung bases appear grossly clear. Evaluation of the solid organs is limited without IV contrast. No evidence of hydronephrosis or jaime al calculus is seen. The spleen is normal in size. No evidence of intrahepatic biliary ductal dila tion is seen. The gallbladder, pancreas, and bilateral adrenal glands appear grossly unremarkable w ithin the confines of a noncontrast exam. The bowel is not dilated. Multiple radiodense structures are present within the proximal small bowel , most likely ingested pills. The uterus is slightly retroflexed. Urinary bladder appear grossly un remarkable. No evidence of free fluid in the abdomen pelvis is seen. The appendix is normal in siz e and contains gas. No evidence of free fluid within the abdomen pelvis is seen. Mild calcified pl aques are present within the abdominal aorta and its major branch vessels. Osseous structures appea r grossly unremarkable per IMPRESSION: 1. No acute abdominal findings. 2. No findings to explain patient's abdominal pain.
[2017-01-11 16:14] LABS: ADD URINE MICROSCOPIC YES
[2017-01-11 16:15] LABS: BACTERIA,URINE 2+ (NOT PRESENT)
[2017-01-11 16:29] LABS: ALBUMIN 3.6 g/dL (3.4-5.0); ALBUMIN/GLOBULIN RATIO 1.13; BILIRUBIN,TOTAL 0.58 mg/dL (0.00-1.20); BUN/CREATININE RATIO 24.63; CREATININE 0.69 mg/dL (0.60-1.30); TOTAL PROTEIN 6.8 g/dL (6.4-8.2)
[2017-01-11] MEDS ORDERED: ROCEPHIN IM STA (16:45)
[2017-01-11] MEDS ORDERED: LIDOCAINE 1 % AMP 5 ML (SUTURES) IM STA (16:45)
--- NOTE | 2017-01-11 16:56 | ED.PDOC ---
General ED Provider: Dr. CAR HANSEN Chief Complaint: Nausea/Vomiting Stated Complaint: ABDOMINAL PAIN Time Seen by Physician: 15:30 Mode of Arrival: Walk-In Information Source: Patient Exam Limitations: No limitations Primary Care Provider: EMILY MURRELL Nursing and Triage Documentation Reviewed and Agree: Yes GI Complaint Exam - Abdominal Pain Complaint/Exam Onset: Gradual Duration: 3 DAYS Symptoms Are: Still present Initial Severity: Mild Current Severity: Mild Location of Pain: Discrete Character: Reports: Aching Aggravating: Reports: None Alleviating: Reports: None Associated Signs and Symptoms: Reports: Dysuria. Denies: Diaphoresis, Fever, Cough, Chest pain, Dizziness, Back pain, Constipation, Blood in stool, Urinary frequency, Decreased urine output, Decreased appetite, Vaginal bleeding, Vaginal discharge, Nausea, Vomiting, Diarrhea, Sore throat, Decreased activity Related History: Reports: Similar episode AAA Risk Factors: Reports: None Cardiac Risk Factors: Reports: None Ectopic Risk Factors: Reports: None Ovarian Torsion Risk Factors: Reports: None Surgical Obstruction Risk Factors: Reports: None Related Surgical History: Reports: None Patient Rh Status: Unknown Abdominal Findings: Present: None Differential Diagnoses: Bowel Obstruction, Constipation, UTI Review of Systems - Review Of Systems Constitutional: Reports: No symptoms Eyes: Reports: No symptoms Ears, Nose, Mouth, Throat: Reports: No symptoms Respiratory: Reports: No symptoms Cardiac: Reports: No symptoms GI: Reports: Abdominal pain : Reports: Dysuria, Frequency Musculoskeletal: Reports: No symptoms Skin: Reports: No symptoms Neurological: Reports: No symptoms Endocrine: Reports: No symptoms Hematologic/Lymphatic: Reports: No symptoms All Other Systems: Reviewed and Negative Past Medical History - Past Medical History Endocrine: Reports: None Cardiovascular: Reports: None Respiratory: Reports: COPD Hematological: Reports: None Gastrointestinal: Reports: GERD, Unknown Genitourinary: Reports: None Neuro/Psych: Reports: Depression Musculoskeletal: Reports: None Cancer: Reports: None Last Menstrual Period: 01/11/17 - Surgical History General Surgical History: Reports: Tubal ligation, Orthopedic (carpal tunnel right hand[) - Family History Family History: Reports: Unknown - Social History Smoking Status: Current some day smoker Hx Substance Use: No Alcohol Screening: None - Immunizations Tetanus Shot up to Date: Yes Physical Exam - Physical Exam Appearance: Well-appearing, No pain distress, Well-nourished Eyes: MARIA ELENA, EOMI, Conjunctiva clear ENT: Ears normal, Nose normal, Oropharynx normal Respiratory: Airway patent, Breath sounds clear, Breath sounds equal, Respirations nonlabored Cardiovascular: RRR, Pulses normal, No rub, No murmur GI/: Soft, Nontender, No masses, Bowel sounds normal, No Organomegaly Musculoskeletal: Normal strength, ROM intact, No edema, No calf tenderness Skin: Warm, Dry, Normal color Neurological: Sensation intact, Motor intact, Reflexes intact, Cranial nerves intact, Alert, Oriented Psychiatric: Affect appropriate, Mood appropriate Interpretation - Radiology Interpretation Radiology Interpretation By: Radiologist Radiology Results: No acute changes Critical Care Note - Critical Care Note Total Time (mins): 0 Course - Course Hematology/Chemistry: 01/11/17 15:54 01/11/17 15:54 Orders, Labs, Meds: Lab Review 01/11/17 01/11/17 15:54 16:02 WBC 7.48 RBC 4.88 Hgb 14.9 Hct 44.2 MCV 90.6 MCH 30.5 MCHC 33.7 RDW Coeff of Javon 15.2 H Plt Count 273 Immature Gran % (Auto) 0.3 Neut % (Auto) 84.5 Lymph % (Auto) 9.5 L [place] % (Auto) 3.7 Eos % (Auto) 1.7 Baso % (Auto) 0.3 Immature Gran # (Auto) 0.0 Neut # 6.3 Lymph # 0.7 [place] # 0.3 L Eos # 0.1 Baso # 0.0 Sodium 142 Potassium 4.0 Chloride 106 Carbon Dioxide 24 Anion Gap 16.0 BUN 17 Creatinine 0.69 Estimated GFR (MDRD) 90.00 BUN/Creatinine Ratio 24.63 Glucose 98 Calcium 9.0 Total Bilirubin 0.58 AST 11 L ALT 11 L Alkaline Phosphatase 69 Total Protein 6.8 Albumin 3.6 Globulin 3.2 Albumin/Globulin Ratio 1.13 Amylase 47 Lipase 31 Urine Color Brown Urine Clarity Cloudy Urine pH 5.5 Ur Specific [place] 1.025 Urine Protein 2+ Urine Glucose (UA) Negative Urine Ketones Trace Urine Blood 3+ Urine Nitrite Negative Urine Bilirubin 1+ Urine Urobilinogen 0.2 Ur Leukocyte Esterase Negative Urine Microscopic RBC Tntc Ur Squamous Epith Cells Not present Urine Bacteria 2+ Orders Category Date Time Status AMYLASE Stat LAB 01/11/17 15:54 Completed CBC W/ AUTO DIFF Stat LAB 01/11/17 15:54 Completed COMPREHENSIVE METABOLIC PANEL Stat LAB 01/11/17 15:54 Completed LIPASE Stat LAB 01/11/17 15:54 Completed URINALYSIS C & S IF INDICATED Stat LAB 01/11/17 16:02 Completed URINE CULTURE Stat LAB 01/11/17 16:02 Received Ceftriaxone Sodium [Rocephin] MEDS 01/11/17 16:45 Discontinued 1 gm IM ONCE STA Lidocaine HCl/Pf [Lidocaine 1 % Amp 5 ml (Sutures)] MEDS 01/11/17 16:45 Discontinued 2.1 ml IM ONCE STA CT ABDOMEN/PELVIS WO CONTRAST Stat RADS 01/11/17 15:44 Completed Medications Discontinued Medications Generic Name Dose Route Start Last Admin Trade Name Freq PRN Reason Stop Dose Admin Ceftriaxone Sodium 1 gm 01/11/17 16:45 Rocephin IM 01/11/17 16:46 ONCE STA Lidocaine HCl 2.1 ml 01/11/17 16:45 Lidocaine 1 % Amp 5 Ml (Sutures) IM 01/11/17 16:46 ONCE STA Vital Signs: Temp Pulse Resp BP Pulse Ox 01/11/17 15:20 99.7 F H 105 H 20 127/85 92 L Departure - Departure Time of Disposition: 16:56 Disposition: HOME SELF-CARE Discharge Problem: Nausea, Vomiting, UTI (urinary tract infection) Instructions: Dysuria (ED), Urinary Tract Infection in Women (ED) Condition: Good Pt referred to PMD for follow-up: Yes Additional Instructions: Please call your Family Physician as soon as possible to schedule a follow-up appointment. Allergies/Adverse Reactions: Allergies meloxicam [From Mobic] Allergy (Intermediate, Verified 01/11/17 15:27) Chest Tightness diclofenac Allergy (Mild, Verified 01/11/17 15:27) Unknown ampicillin Adverse Reaction (Verified 01/11/17 15:27) azithromycin [From Zithromax] Adverse Reaction (Verified 01/11/17 15:27) fluoxetine [From Prozac] Adverse Reaction (Verified 01/11/17 15:27) naproxen Adverse Reaction (Verified 01/11/17 15:27) venlafaxine [From Effexor] Adverse Reaction (Verified 01/11/17 15:27) Home Medications: Ambulatory Orders Omeprazole [Prilosec] 20 mg PO QDAC 10/09/16 Acetaminophen [Tylenol Arthritis] 650 mg PO BEDTIME 12/13/16
== END 2017-01-11 17:20 | disposition home or self-care (01) ==
LOC: ED 15:20
DX: N39.0 Urinary tract infection, site not specified (principal); R11.2 Nausea with vomiting, unspecified; F17.210 Nicotine dependence, cigarettes, uncomplicated
CPT/HCPCS: 36415; 80053; 81001; 82150; 83690; 85025; 87086; 87186; 96372; 99283

== ENCOUNTER 2017-02-12 10:34 | Inpatient (IN) ==
[2017-02-12] MEDS ORDERED: NICODERM 21 MG TD STA (10:53)
--- NOTE | 2017-02-12 10:53 | ED.PDOC ---
General ED Provider: Dr. ANGELIA PATTON JR Chief Complaint: Respiratory Complaint Stated Complaint: Weak, headache, dizzy. O2 sat 70's to 80's. No O2 at home. Hx COPD. [ End ]97.6 104 20 84% 130/81 [id number] at 0930 Continues to smoke a pack a day.[ End ] Time Seen by Physician: 10:51 Mode of Arrival: Walk-In Information Source: Patient Exam Limitations: No limitations Primary Care Provider: ELMO ROSARIO[facility] Nursing and Triage Documentation Reviewed and Agree: No Review of Systems - Review Of Systems Constitutional: Reports: Malaise, Weakness Eyes: Reports: No symptoms Ears, Nose, Mouth, Throat: Reports: No symptoms Respiratory: Reports: Orthopnea, Short of air Cardiac: Reports: No symptoms Neurological: Reports: Headache, Other (DIZZY) All Other Systems: Other Past Medical History - Past Medical History Endocrine: Reports: None Cardiovascular: Reports: None Respiratory: Reports: COPD Hematological: Reports: None Gastrointestinal: Reports: GERD, Unknown Genitourinary: Reports: None Neuro/Psych: Reports: Depression Musculoskeletal: Reports: None Cancer: Reports: None Last Menstrual Period: unknown - Surgical History General Surgical History: Reports: Tubal ligation, Orthopedic (carpal tunnel right hand[) - Family History Family History: Reports: Unknown - Social History Smoking Status: Current every day smoker, Heavy tobacco smoker Hx Substance Use: No Alcohol Screening: None Physical Exam - Physical Exam Appearance: Ill-appearing Ill-appearing: Moderate Pain Distress: Mild Eyes: MARIA ELENA, EOMI, Conjunctiva clear ENT: Ears normal, Nose normal, Oropharynx normal Neck: Supple Respiratory: Breath sounds diminished, Rhonchi Cardiovascular: RRR, Pulses normal, No rub, No murmur GI/: Soft, Nontender, No masses, Bowel sounds normal, No Organomegaly Musculoskeletal: Normal strength, ROM intact, No edema, No calf tenderness Skin: Warm, Dry, Normal color Neurological: Sensation intact, Motor intact, Reflexes intact, Cranial nerves intact, Alert, Oriented Psychiatric: Anxious Interpretation - EKG Interpretation Time of EKG #1: 11:25 Rate: Normal Rhythm: Sinus Ectopy: None [place]: [place] ST Segment: Other (old changes q waves V123) Re-Evaluation - Re-Evaluation Time of Re-Evaluation: 14:12 (disc with dr bejgum disc with patietn - request tx headache took ultram this morning without relief will allow norco) Status: Unchanged Critical Care Note - Critical Care Note Total Time (mins): 20 Course - Course Hematology/Chemistry: 02/12/17 11:15 02/12/17 11:15 Orders, Labs, Meds: Lab Review 02/12/17 02/12/17 11:00 11:15 WBC 6.24 RBC 4.22 Hgb 13.0 Hct 38.8 MCV 91.9 MCH 30.8 MCHC 33.5 RDW Coeff of Javon 15.1 H Plt Count 283 Immature Gran % (Auto) 0.5 Neut % (Auto) 75.2 Lymph % (Auto) 16.8 [place] % (Auto) 5.8 Eos % (Auto) 1.1 Baso % (Auto) 0.6 Immature Gran # (Auto) 0.0 Neut # 4.7 Lymph # 1.1 [place] # 0.4 Eos # 0.1 Baso # 0.0 D-Dimer (Manual) 245.57 Puncture Site R rad O2 Saturation 80.0 L ABG pH 7.327 L ABG pCO2 53.6 H ABG pO2 49.0 L* ABG HCO3 28.0 H ABG Total CO2 30 H ABG Base Excess 2 Kulwinder Test + FiO2 % 21.0 Sodium 138 Potassium 4.5 Chloride 99 Carbon Dioxide 27 Anion Gap 16.5 BUN 11 Creatinine 0.71 Estimated GFR (MDRD) 87.00 BUN/Creatinine Ratio 15.49 Glucose 104 Calcium 9.3 Total Bilirubin 0.50 AST 21 ALT 51 Alkaline Phosphatase 72 Total Creatine Kinase 102 Troponin I < 0.0100 B-Natriuretic Peptide 55 Total Protein 7.1 Albumin 3.9 Globulin 3.2 Albumin/Globulin Ratio 1.22 Procalcitonin < 0.05 Orders Category Date Time Status ADMIT PATIENT INPATIENT .TO [facility] (MONITORED BED) ADMISSION 02/12/17 14: 53 Active ABG DRAW REQUEST Stat CARDIO 02/12/17 10:52 Completed EKG-(ED ONLY) Stat CARDIO 02/12/17 10:52 Completed EKG-(IP & OP ONLY) DAILY CARDIO 02/13/17 06:00 Ordered EKG-(IP & OP ONLY) DAILY CARDIO 02/14/17 06:00 Ordered EKG-(IP & OP ONLY) DAILY CARDIO 02/15/17 06:00 Ordered NEBULIZER TREATMENT Routine CARDIO 02/12/17 15:01 Active NEBULIZER TREATMENT Stat CARDIO 02/12/17 10:55 Completed OXYGEN Routine CARDIO 02/12/17 14:57 Active ACTIVITY .Early Mobilization for VTE Prevention CARE 02/12/17 14:53 Active INTAKE & OUTPUT Q8HR CARE 02/12/17 14:56 Active TELEMETRY MONITORING TELE CARE 02/12/17 14:57 Active VITAL SIGNS Q4HR CARE 02/12/17 14:53 Active REGULAR DIET DIETARY 02/12/17 Dinner Ordered ED APPLY O2 .ONCE EMERGENCY 02/12/17 10:51 Active ED SKILLED HELPER APPLIED .ONCE EMERGENCY 02/12/17 10:51 Active ED IV/MEDIPORT/POWERPORT .ONCE EMERGENCY 02/12/17 10:51 Active ABG Stat LAB 02/12/17 11:00 Completed B-TYPE NATRIURETIC PEPTIDE Stat LAB 02/12/17 11:15 Completed BLOOD CULTURE Stat LAB 02/12/17 11:15 Received CBC W/ AUTO DIFF DAILY@0600 LAB 02/13/17 06:00 Ordered CBC W/ AUTO DIFF DAILY@0600 LAB 02/14/17 06:00 Ordered CBC W/ AUTO DIFF DAILY@0600 LAB 02/15/17 06:00 Ordered CBC W/ AUTO DIFF DAILY@0600 LAB 02/16/17 06:00 Ordered CBC W/ AUTO DIFF DAILY@0600 LAB 02/17/17 06:00 Ordered CBC W/ AUTO DIFF DAILY@0600 LAB 02/18/17 06:00 Ordered CBC W/ AUTO DIFF DAILY@0600 LAB 02/19/17 06:00 Ordered CBC W/ AUTO DIFF DAILY@0600 LAB 02/20/17 06:00 Ordered CBC W/ AUTO DIFF DAILY@0600 LAB 02/21/17 06:00 Ordered CBC W/ AUTO DIFF DAILY@0600 LAB 02/22/17 06:00 Ordered CBC W/ AUTO DIFF DAILY@0600 LAB 02/23/17 06:00 Ordered CBC W/ AUTO DIFF DAILY@0600 LAB 02/24/17 06:00 Ordered CBC W/ AUTO DIFF DAILY@0600 LAB 02/25/17 06:00 Ordered CBC W/ AUTO DIFF DAILY@0600 LAB 02/26/17 06:00 Ordered CBC W/ AUTO DIFF DAILY@0600 LAB 02/27/17 06:00 Ordered CBC W/ AUTO DIFF DAILY@0600 LAB 02/28/17 06:00 Ordered CBC W/ AUTO DIFF DAILY@0600 LAB 03/01/17 06:00 Ordered CBC W/ AUTO DIFF DAILY@0600 LAB 03/02/17 06:00 Ordered CBC W/ AUTO DIFF DAILY@0600 LAB 03/03/17 06:00 Ordered CBC W/ AUTO DIFF DAILY@0600 LAB 03/04/17 06:00 Ordered CBC W/ AUTO DIFF Stat LAB 02/12/17 11:15 Completed COMPREHENSIVE METABOLIC PANEL DAILY@0600 LAB 02/13/17 06:00 Ordered COMPREHENSIVE METABOLIC PANEL DAILY@0600 LAB 02/14/17 06:00 Ordered COMPREHENSIVE METABOLIC PANEL DAILY@0600 LAB 02/15/17 06:00 Ordered COMPREHENSIVE METABOLIC PANEL DAILY@0600 LAB 02/16/17 06:00 Ordered COMPREHENSIVE METABOLIC PANEL DAILY@0600 LAB 02/17/17 06:00 Ordered COMPREHENSIVE METABOLIC PANEL DAILY@0600 LAB 02/18/17 06:00 Ordered COMPREHENSIVE METABOLIC PANEL DAILY@0600 LAB 02/19/17 06:00 Ordered COMPREHENSIVE METABOLIC PANEL DAILY@0600 LAB 02/20/17 06:00 Ordered COMPREHENSIVE METABOLIC PANEL DAILY@0600 LAB 02/21/17 06:00 Ordered COMPREHENSIVE METABOLIC PANEL DAILY@0600 LAB 02/22/17 06:00 Ordered COMPREHENSIVE METABOLIC PANEL DAILY@0600 LAB 02/23/17 06:00 Ordered COMPREHENSIVE METABOLIC PANEL DAILY@0600 LAB 02/24/17 06:00 Ordered COMPREHENSIVE METABOLIC PANEL DAILY@0600 LAB 02/25/17 06:00 Ordered COMPREHENSIVE METABOLIC PANEL DAILY@0600 LAB 02/26/17 06:00 Ordered COMPREHENSIVE METABOLIC PANEL DAILY@0600 LAB 02/27/17 06:00 Ordered COMPREHENSIVE METABOLIC PANEL DAILY@0600 LAB 02/28/17 06:00 Ordered COMPREHENSIVE METABOLIC PANEL DAILY@0600 LAB 03/01/17 06:00 Ordered COMPREHENSIVE METABOLIC PANEL DAILY@0600 LAB 03/02/17 06:00 Ordered COMPREHENSIVE METABOLIC PANEL DAILY@0600 LAB 03/03/17 06:00 Ordered COMPREHENSIVE METABOLIC PANEL DAILY@0600 LAB 03/04/17 06:00 Ordered COMPREHENSIVE METABOLIC PANEL Stat LAB 02/12/17 11:15 Completed CREATINE KINASE Q8H LAB 02/12/17 21:00 Ordered CREATINE KINASE Q8H LAB 02/13/17 05:00 Ordered CREATINE KINASE Stat LAB 02/12/17 11:15 Completed D-DIMER Stat LAB 02/12/17 11:15 Completed PROCALCITONIN Stat LAB 02/12/17 11:15 Completed TROPONIN I Q8H LAB 02/12/17 21:00 Ordered TROPONIN I Q8H LAB 02/13/17 05:00 Ordered TROPONIN I Stat LAB 02/12/17 11:15 Completed 0.9 % Sodium Chloride [Saline Flush] MEDS 02/12/17 10:51 Active 1 syr IVF PRN PRN Acetaminophen [Tylenol] MEDS 02/12/17 14:53 Active 650 mg PO Q4H PRN Hydrocodone Bit/Acetaminophen [[place] 5-325] MEDS 02/12/17 14:10 Discontinued 1 tab PO ONCE STA Ipratropium/Albuterol Neb [Duoneb] MEDS 02/12/17 10:55 Discontinued 1 vial NEB ONCE STA Ipratropium/Albuterol Neb [Duoneb] MEDS 02/12/17 18:00 Active 1 vial NEB RTQ6H Levofloxacin/D5w [Levaquin] 500 mg MEDS 02/12/17 15:30 Active Premix 100 ml D5w 1 bag IV DAILY Methylprednisolone Sod Succ/Pf [Solu-Medrol 125 mg] MEDS 02/12/17 15:30 Active 125 mg IVP Q12HR Nicotine 21 mg [Nicoderm 21 mg] MEDS 02/12/17 10:53 Discontinued 1 patch TD ONCE STA RESUSCITATION STATUS Routine OTHERS 02/12/17 14:53 Ordered CHEST, 1V AP ONLY Stat RADS 02/12/17 10:52 Completed Medications Generic Name Dose Route Start Last Admin Trade Name Freq PRN Reason Stop Dose Admin Acetaminophen 650 mg 02/12/17 14:53 Tylenol PO Q4H PRN Mild Pain Albuterol/Ipratropium 1 vial 02/12/17 18:00 02/12/17 17:22 Duoneb NEB 1 vial RTQ6H NOREEN Administration Gabapentin 300 mg 02/12/17 21:00 Neurontin PO BID NOREEN Guaifenesin 600 mg 02/12/17 21:00 Mucinex PO BEDTIME NOREEN Levofloxacin/Dextrose 500 mg/ 100 mls @ 100 mls/hr 02/12/17 15:30 02/12/17 16 :03 Dextrose IV 100 mls/hr DAILY NOREEN Administration Methylprednisolone Sodium Succinate 125 mg 02/12/17 15:30 08/30/17 16:01 Solu-Medrol 125 Mg IVP 125 mg Q12HR NOREEN Administration Non-Formulary Medication 0.63 mg 02/12/17 17:13 Albuterol Sulfate [Albuterol Sulfate] IH QID PRN SOB Non-Formulary Medication 650 mg 02/12/17 21:00 Acetaminophen [Tylenol Arthritis] PO BEDTIME NOREEN Non-Formulary Medication 2 puff 02/12/17 21:00 Glycopyrrolate/Formoterol Fum [Bevespi Aerosphere Inhaler] IH BID NOREEN Non-Formulary Medication 750 mg 02/12/17 21:00 Methocarbamol PO BEDTIME NOREEN Non-Formulary Medication 8 mg 02/12/17 17:13 Ondansetron Hcl [Zofran] PO BID PRN Nausea / Vomiting Omeprazole 20 mg 02/12/17 21:00 Prilosec PO BID NOREEN Sodium Chloride 1 syr 02/12/17 10:51 Saline Flush IVF PRN PRN To flush IV Tramadol HCl 50 mg 02/12/17 17:13 Ultram PO TID PRN Pain Discontinued Medications Generic Name Dose Route Start Last Admin Trade Name Freq PRN Reason Stop Dose Admin Acetaminophen/Hydrocodone Bitart 1 tab 02/12/17 14:10 02/12/17 14:20 [place] 5-325 PO 02/12/17 14:11 1 tab ONCE STA Administration Albuterol/Ipratropium 1 vial 02/12/17 10:55 02/12/17 11:13 Duoneb NEB 02/12/17 10:56 1 vial ONCE STA Administration Nicotine 1 patch 02/12/17 10:53 Nicoderm 21 Mg TD 02/12/17 10:54 ONCE STA Vital Signs: Temp Pulse Resp BP Pulse Ox 02/12/17 10:36 97.6 F 104 H 20 130/81 84 L Departure - Departure Time of Disposition: 14:50 Disposition: ADMITTED INPATIENT Discharge Problem: COPD with exacerbation Condition: Stable Pt referred to PMD for follow-up: No (HOSPITALIST) Allergies/Adverse Reactions: Allergies meloxicam [From Mobic] Allergy (Intermediate, Verified 02/12/17 10:45) Chest Tightness diclofenac Allergy (Mild, Verified 02/12/17 10:45) Unknown ampicillin Adverse Reaction (Verified 02/12/17 10:45) azithromycin [From Zithromax] Adverse Reaction (Verified 02/12/17 10:45) fluoxetine [From Prozac] Adverse Reaction (Verified 02/12/17 10:45) naproxen Adverse Reaction (Verified 02/12/17 10:45) venlafaxine [From Effexor] Adverse Reaction (Verified 02/12/17 10:45) Home Medications: Ambulatory Orders Omeprazole [Prilosec] 20 mg PO BID 10/09/16 Acetaminophen [Tylenol Arthritis] 650 mg PO BEDTIME 12/13/16 Guaifenesin [Mucinex] 600 mg PO BEDTIME 02/12/17 Methocarbamol [Robaxin] 750 mg PO BEDTIME 02/12/17
[2017-02-12] MEDS ORDERED: DUONEB NEB STA (10:55)
[2017-02-12 11:21] LABS: ABG PCO2 53.6 mmHg (35-45); ABG PH 7.327 (7.35-7.45)
[2017-02-12 11:22] LABS: ABG BASE EXCESS 2 (-2.0-2.0); ABG TCO2 30 (22.0-28.0)
[2017-02-12 11:29] LABS: BASOPHILS % (AUTO) 0.6 % (0.0-3.0); EOSINOPHILS # (AUTO) 0.1 K/ul (0.0-0.7); EOSINOPHILS % (AUTO) 1.1 % (0.0-7.0); HEMATOCRIT 38.8 % (37.0-47.0); IMMATURE GRANULOCYTE % (AUTO) 0.5 % (0.0-5.0); LYMPHOCYTES # (AUTO) 1.1 K/uL (0.60-3.4); LYMPHOCYTES % (AUTO) 16.8 (10.0-50.0); MEAN CORPUSCULAR HEMOGLOBIN 30.8 pg (27.0-31.0); MEAN CORPUSCULAR HGB CONC 33.5 (31.8-35.4); MEAN CORPUSCULAR VOLUME 91.9 fl (81.0-99.0); MONOCYTES # (AUTO) 0.4 K/uL (0.4-2.0); MONOCYTES % (AUTO) 5.8 (0-10); NEUTROPHILS # (AUTO) 4.7 K/ul (2.0-6.9); NEUTROPHILS % (AUTO) 75.2; PLATELET COUNT 283 10^3/uL (140-440); RED BLOOD COUNT 4.22 10^6/ul (4.20-5.40); WHITE BLOOD COUNT 6.24 K/ul (4.6-10.2)
[2017-02-12 12:00] LABS: ALANINE AMINOTRANSFERASE 51 U/L (12-78); ALBUMIN 3.9 g/dL (3.4-5.0); ALBUMIN/GLOBULIN RATIO 1.22; ALKALINE PHOSPHATASE 72 U/L (42-98); ANION GAP 16.5; ASPARTATE AMINO TRANSFERASE 21 U/L (15-37); BLOOD UREA NITROGEN 11 mg/dL (7-18); BUN/CREATININE RATIO 15.49; CALCIUM 9.3 mg/dL (8.2-10.2); CARBON DIOXIDE 27 mmol/L (21-32); CHLORIDE 99 mmol/L (98-107); CREATINE KINASE 102 U/L; CREATININE 0.71 mg/dL (0.60-1.30); GLUCOSE 104 mg/dL (70-110); POTASSIUM 4.5 mmol/L (3.5-5.10); SODIUM 138 mmol/L (136-145); TOTAL PROTEIN 7.1 g/dL (6.4-8.2)
--- NOTE | 2017-02-12 12:13 | DI ---
Exam: Single x-ray of the chest. Comparison: 12/31/2016. Reason for exam: Chest pain. FINDINGS: No pneumothorax, pleural effusion, or focal consolidation. The cardiac silhouette is not enlarged. The imaged osseous structures appear grossly unremarkable without acute fracture. Impression: No acute cardiopulmonary process.
[2017-02-12] MEDS ORDERED: NORCO 5-325 PO STA (14:10)
[2017-02-12] MEDS ORDERED: TYLENOL PO PRN (14:53)
[2017-02-12] MEDS ORDERED: LEVAQUIN 100 ML IV ONE (15:45)
[2017-02-12] MEDS: SOLU-MEDROL 125 MG IVP SCH ×2 (16:01→20:55)
[2017-02-12] MEDS: LEVAQUIN 500 MG in PREMIX 100 ML D5W 1 BAG IV SCH (16:03)
[2017-02-12 17:09] VITALS: BMI 31.6
[2017-02-12] MEDS ORDERED: NON-FORMULARY MEDICATION (Ondansetron Hcl [Zofran] 8 MG) PO PRN (17:13)
[2017-02-12] MEDS ORDERED: ALBUTEROL SULFATE 0.63 MG IH PRN (17:13)
[2017-02-12] MEDS ORDERED: ULTRAM PO PRN (17:13)
[2017-02-12] MEDS: DUONEB NEB SCH ×2 (17:22→22:55)
[2017-02-12] MEDS ORDERED: ROBAXIN PO ONE (20:06)
[2017-02-12] MEDS: NEURONTIN PO SCH (20:52)
[2017-02-12] MEDS: MUCINEX PO SCH (20:52)
[2017-02-12] MEDS: PRILOSEC PO SCH (20:52)
[2017-02-12] MEDS ORDERED: NON-FORMULARY MEDICATION (Methocarbamol 750 MG) PO SCH (21:00)
[2017-02-12] MEDS ORDERED: NON-FORMULARY MEDICATION (Acetaminophen [Tylenol Arthritis] 650 MG) PO SCH ×22 (21:00)
[2017-02-12] MEDS ORDERED: NON-FORMULARY MEDICATION (Glycopyrrolate/Formoterol Fum [Bevespi Aerosphere Inhaler] 2 PUF IH SCH (21:00)
[2017-02-12 22:10] LABS: TROPONIN I 0.017 ng/ml (0.0000-0.4000)
[2017-02-13] MEDS: DUONEB NEB SCH ×4 (05:11→23:05)
[2017-02-13 06:01] LABS: BASOPHILS % (AUTO) 0.1 % (0.0-3.0); HEMATOCRIT 39.4 % (37.0-47.0); HEMOGLOBIN 13.2 g/dl (12.0-16.0); IMMATURE GRANULOCYTE % (AUTO) 0.4 % (0.0-5.0); LYMPHOCYTES # (AUTO) 0.9 K/uL (0.60-3.4); LYMPHOCYTES % (AUTO) 12.9 (10.0-50.0); MEAN CORPUSCULAR HEMOGLOBIN 30.6 pg (27.0-31.0); MEAN CORPUSCULAR HGB CONC 33.5 (31.8-35.4); MEAN CORPUSCULAR VOLUME 91.2 fl (81.0-99.0); MONOCYTES # (AUTO) 0.1 K/uL (0.4-2.0); MONOCYTES % (AUTO) 0.7 (0-10); NEUTROPHILS # (AUTO) 5.7 K/ul (2.0-6.9); NEUTROPHILS % (AUTO) 85.9; PLATELET COUNT 293 10^3/uL (140-440); RED BLOOD COUNT 4.32 10^6/ul (4.20-5.40); WHITE BLOOD COUNT 6.69 K/ul (4.6-10.2)
[2017-02-13 06:28] LABS: ALBUMIN 3.8 g/dL (3.4-5.0); ALBUMIN/GLOBULIN RATIO 1.15; BILIRUBIN,TOTAL 0.39 mg/dL (0.00-1.20); BUN/CREATININE RATIO 17.91; CALCIUM 9.8 mg/dL (8.2-10.2); CREATININE 0.67 mg/dL (0.60-1.30); TOTAL PROTEIN 7.1 g/dL (6.4-8.2)
[2017-02-13 06:43] LABS: CREATINE KINASE 70 U/L
[2017-02-13] MEDS ORDERED: ZOFRAN TAB PO PRN (07:07)
[2017-02-13] MEDS: NON-FORMULARY MEDICATION (Glycopyrrolate/Formoterol Fum [Bevespi Aerosphere Inhaler] 2 PUF IH SCH ×2 (09:20→20:03)
[2017-02-13] MEDS: LEVAQUIN 500 MG in PREMIX 100 ML D5W 1 BAG IV SCH (09:21)
[2017-02-13] MEDS: PRILOSEC PO SCH ×2 (09:21→20:03)
[2017-02-13] MEDS: NEURONTIN PO SCH ×2 (09:21→20:02)
[2017-02-13] MEDS: SOLU-MEDROL 125 MG IVP SCH ×2 (09:21→20:00)
[2017-02-13] MEDS ORDERED: ALBUTEROL 0.083% NEB NEB PRN (10:25)
[2017-02-13] MEDS: MUCINEX PO SCH (20:00)
[2017-02-13] MEDS: TYLENOL PO SCH (20:02)
[2017-02-13] MEDS: ROBAXIN PO SCH (20:02)
[2017-02-14] MEDS: DUONEB NEB SCH ×4 (05:00→23:17)
[2017-02-14 05:41] LABS: BASOPHILS % (AUTO) 0.2 % (0.0-3.0); EOSINOPHILS % (AUTO) 0.3 % (0.0-7.0); HEMATOCRIT 38.8 % (37.0-47.0); HEMOGLOBIN 13.1 g/dl (12.0-16.0); IMMATURE GRANULOCYTE % (AUTO) 0.5 % (0.0-5.0); LYMPHOCYTES # (AUTO) 3.5 K/uL (0.60-3.4); LYMPHOCYTES % (AUTO) 27.4 (10.0-50.0); MEAN CORPUSCULAR HEMOGLOBIN 30.7 pg (27.0-31.0); MEAN CORPUSCULAR HGB CONC 33.8 (31.8-35.4); MEAN CORPUSCULAR VOLUME 90.9 fl (81.0-99.0); MONOCYTES # (AUTO) 0.8 K/uL (0.4-2.0); NEUTROPHILS # (AUTO) 8.3 K/ul (2.0-6.9); NEUTROPHILS % (AUTO) 65.6; PLATELET COUNT 296 10^3/uL (140-440); RED BLOOD COUNT 4.27 10^6/ul (4.20-5.40)
[2017-02-14 06:08] LABS: ALBUMIN 3.6 g/dL (3.4-5.0); ALBUMIN/GLOBULIN RATIO 1.2; ANION GAP 19.4; BILIRUBIN,TOTAL 0.32 mg/dL (0.00-1.20); CALCIUM 9.6 mg/dL (8.2-10.2); CREATININE 0.7 mg/dL (0.60-1.30); POTASSIUM 3.4 mmol/L (3.5-5.10); TOTAL PROTEIN 6.6 g/dL (6.4-8.2)
[2017-02-14] MEDS ORDERED: K-DUR PO STA (08:18)
[2017-02-14] MEDS: LEVAQUIN 500 MG in PREMIX 100 ML D5W 1 BAG IV SCH (08:35)
[2017-02-14] MEDS: NON-FORMULARY MEDICATION (Glycopyrrolate/Formoterol Fum [Bevespi Aerosphere Inhaler] 2 PUF IH SCH ×2 (08:35→20:27)
[2017-02-14] MEDS: NEURONTIN PO SCH ×2 (08:35→20:29)
[2017-02-14] MEDS: PRILOSEC PO SCH ×2 (08:35→20:28)
[2017-02-14] MEDS: SOLU-MEDROL 125 MG IVP SCH ×2 (09:39→20:29)
--- NOTE | 2017-02-14 15:18 | HP ---
DATE OF SERVICE: 02/12/17 CHIEF COMPLAINT/HISTORY OF PRESENT ILLNESS: Been coughing and congestion, getting shortness of breath and woke up in the morning and checked the saturations and they were 70's and 80's. She came to the emergency room with cough, congestion and getting yellow/green phlegm and hypoxemia. She came to the emergency room and the patient's saturation was low 84% on room air. The patient was put on the 2 liters and ABG done which showed the pH 7.327, pCO2 53.6, pO2 49. The D-dimer 245. Chest x-ray showed no acute cardiopulmonary processes. At that time after giving the initial breath treatment the patient was admitted to the hospital secondary to the acute respiratory failure, COPD exacerbation and CO2 Narcosis. REVIEW OF SYSTEMS: CONSTITUTIONAL: No fever, no chills. Weakness and tiredness. HEENT: Normal. ENDOCRINE: No weight gain; no weight loss. CVS: No chest pain. No PND, no orthopnea. Shortness of breath. No PND, no orthopnea. RESPIRATORY: Cough and congestion. No hemoptysis. GI: No nausea, no vomiting. No abdominal pain. No melena. : No hematuria. No polyuria. MUSCULOSKELETAL: No joint swelling. PSYCHIATRIC: Not anxious. No depression. No suicidal thoughts. No homicidal thoughts. SKIN: Intact, no open lesions. PAST MEDICAL HISTORY: COPD History of pneumonia GERD Osteoarthritis DJD spine Depression PAST SURGICAL HISTORY: Tubal ligation Carpal tunnel right History fo chest tube. PERSONAL HISTORY: The patient does smoke, no alcohol and no drugs. The patient is and lives with the . Family history is significant for CHF and kidney cancer. MEDICATIONS: Prilosec Zofran Tylenol Gabapentin Bevespi Tramadol Robaxin Mucinex Albuterol Sulfate ALLERGIES: Meloxicam Diclofenac Ampicillin Azithromycin Fluoxetine Naproxen Venlafaxine PHYSICAL EXAMINATION: V/S: Blood pressure 130/81, respiratory rate 20, heart rate 104, saturation 84 on 2 liters. GENERAL: Mildly distress, sick looking lady laying in the bed. HEENT: Atraumatic, normocephalic. No scleral icterus. Pallor positive. Mucosa dry. NECK: Supple. No JVD, no bruit. No lymphadenopathy. No thyromegaly. HEART: S1, S2 normal. No murmur. No cyanosis or clubbing. No ascites. LUNGS: Decreased and basilar crackles, expiratory wheezing, diffused but present. No rales or rhonchi. ABDOMEN: Soft, nontender. Bowel sounds are active. No CVA tenderness. No rigidity or guarding. EXTREMITIES: No cyanosis, clubbing or pedal edema. MUSCULOSKELETAL: Normal joints, no swelling. NEUROLOGIC: The patient is SKIN: Intact; no open lesions. LYMPHATIC: No lymph nodes palpable. LABS: WBC 6.24, hgb 13.0, hct 38.8, plt count 283, d-dimer 245, ABG pH 7.327, pCO2 53.6, pO2 49, sodium 138, potassium 4.5, chloride 99, bicarb 27, BUN 11, creatinine 0.71. ASSESSMENT: 1. COPD exacerbation secondary to the bronchitis 2. CO2 Narcosis 3. Acute respiratory failure 4. Continued Nicotine use 5. Hypertension 6. Dyslipidemia 7. Depression 8. Chronic pain syndrome PLAN: 1. Admit patient to the regular floor 2. CBC and CMP today and daily 3. Cardiac enzymes and troponin 4. DUO NEBS 5. Levofloxacin 6. Solu-Medrol 125 Q 12 hours 7. IV fluids 8. Daily I&O's TIME SPENT: MORE THAN 70 minutes MTDD
[2017-02-14] MEDS: ROBAXIN PO SCH (20:28)
[2017-02-14] MEDS: MUCINEX PO SCH (20:28)
[2017-02-14] MEDS: TYLENOL PO SCH (20:30)
[2017-02-15] MEDS: DUONEB NEB SCH ×3 (04:39→17:05)
[2017-02-15 05:30] LABS: BASOPHILS # (AUTO) 0.1 K/uL (0-0.2); BASOPHILS % (AUTO) 0.7 % (0.0-3.0); EOSINOPHILS # (AUTO) 0.1 K/ul (0.0-0.7); EOSINOPHILS % (AUTO) 1.4 % (0.0-7.0); HEMATOCRIT 38.7 % (37.0-47.0); HEMOGLOBIN 12.9 g/dl (12.0-16.0); IMMATURE GRANULOCYTE % (AUTO) 0.4 % (0.0-5.0); LYMPHOCYTES # (AUTO) 3.3 K/uL (0.60-3.4); LYMPHOCYTES % (AUTO) 43.3 (10.0-50.0); MEAN CORPUSCULAR HEMOGLOBIN 30.2 pg (27.0-31.0); MEAN CORPUSCULAR HGB CONC 33.3 (31.8-35.4); MEAN CORPUSCULAR VOLUME 90.6 fl (81.0-99.0); MONOCYTES # (AUTO) 0.7 K/uL (0.4-2.0); MONOCYTES % (AUTO) 8.9 (0-10); NEUTROPHILS # (AUTO) 3.5 K/ul (2.0-6.9); NEUTROPHILS % (AUTO) 45.3; PLATELET COUNT 294 10^3/uL (140-440); RED BLOOD COUNT 4.27 10^6/ul (4.20-5.40); WHITE BLOOD COUNT 7.62 K/ul (4.6-10.2)
[2017-02-15 05:48] LABS: ALBUMIN 3.4 g/dL (3.4-5.0); ALBUMIN/GLOBULIN RATIO 1.21; ANION GAP 18.8; BILIRUBIN,TOTAL 0.24 mg/dL (0.00-1.20); BUN/CREATININE RATIO 31.57; CALCIUM 8.9 mg/dL (8.2-10.2); CREATININE 0.57 mg/dL (0.60-1.30); POTASSIUM 3.8 mmol/L (3.5-5.10); TOTAL PROTEIN 6.2 g/dL (6.4-8.2)
[2017-02-15] MEDS: PRILOSEC PO SCH (09:11)
[2017-02-15] MEDS: NEURONTIN PO SCH (09:11)
[2017-02-15] MEDS: LEVAQUIN 500 MG in PREMIX 100 ML D5W 1 BAG IV SCH (09:12)
[2017-02-15] MEDS: NON-FORMULARY MEDICATION (Glycopyrrolate/Formoterol Fum [Bevespi Aerosphere Inhaler] 2 PUF IH SCH (09:12)
[2017-02-15] MEDS: SOLU-MEDROL 125 MG IVP SCH (09:13)
[2017-02-15 14:55] VITALS: BP 155/91; TEMP 98.3
--- NOTE | 2017-02-26 09:08 | PN ---
DATE OF SERVICE: 02/13/17 SUBJECTIVE: The patient was admitted with COPD exacerbation and bronchitis. She is somewhat better today. Oxygen has improved to 94-95 oxygen saturation with 2 Liters. REVIEW OF SYSTEMS: CONSTITUTIONAL: No fever, no chills. HEENT: Normal. ENDOCRINE: No weight gain, no weight loss. CVS: No angina symptoms. No CHF symptoms. No palpitations. No atypical chest pain for CAD. No shortness of breath. No PND, no orthopnea. RESPIRATORY: No cough, no hemoptysis. GI: No nausea, no vomiting. No abdominal pain. : No hematuria. No polyuria. MUSCULOSKELETAL:. No joint swelling. PSYCHIATRIC: Not anxious. No depression. No suicidal thoughts. No homicidal thoughts. SKIN: Intact. No rash. PHYSICAL EXAMINATION: V/S: Blood pressure 122/72, respiratory rate 20, heart rate 92, temperature 96.7 , saturation 95 on 2 liters. HEENT: Normocephalic, atraumatic. Mucosa dry. NECK: Supple. No JVD, no carotid bruit. No lymphadenopathy. LUNGS: Decreased with basilar crackles and mild expiratory wheeze. No rales or rhonchi. HEART: S1, S2 normal. No S3. No murmur, gallop or regurgitation. ABDOMEN: Soft, nontender. Bowel sounds active. No rigidity. No rebound or guarding. No CVA tenderness. EXTREMITIES: No clubbing, cyanosis or pedal edema. MUSCULOSKELETAL: No joint swelling. NEUROLOGIC: Awake, alert, oriented times three. No focal deficit. LYMPHATIC: No lymph nodes palpable. SKIN: Intact. LABS: White count 6.69, hemoglobin 13.2, hematocrit 39.4, platelet count 293, sodium 140, potassium 4.0, chloride 92, bicarb 26, BUN 12, creatinine 0.67, glucose 142. ASSESSMENT: 1. CHRONIC OBSTRUCTIVE PULMONARY DISEASE EXACERBATION SECONDARY TO BRONCHITIS 2. ACUTE RESPIRATORY FAILURE 3. HYPOXEMIA 4. C02 NARCOSIS 5. HYPERTENSION 6. CONTINUED SMOKING 7. DYSLIPIDEMIA 8. GERD 9. TUBAL LIGATION 10. DEPRESSION PLAN: 1. Continue DuoNebs, Levofloxacin and Solu-Medrol 25 mg every 12 hours. 2. Nicotine patch. 3. Daily I & O's. 4. Will follow up with the patient in daily rounds. TIME SPENT: More than 30 minutes MTDD
--- NOTE | 2017-02-27 09:15 | DS ---
DATE OF SERVICE: 02/15/17 FINAL DIAGNOSIS: 1. CHRONIC OBSTRUCTIVE PULMONARY EXACERBATION SECONDARY TO BRONCHITIS 2. HYPOXEMIC RESPIRATORY FAILURE 3. NONCOMPLIANCE 4. CONTINUED NICOTINE USE 5. CHRONIC OBSTRUCTIVE PULMONARY DISEASE 6. GERD 7. TUBAL LIGATION 8. HISTORY OF COLLAPSED LUNG 9. OSTEOARTHRITIS PLAN: 1. Discharge the patient home. 2. Continue home medications. HOME MEDICATIONS AT DISCHARGE: Albuterol inhaler prn Neurontin 300 mg twice daily Bevespi Inhaler Mucinex Robaxin Prilosec Zofran Prednisone Tramadol NEW PRESCRIPTIONS: Keflex 500 mg twice a day for five days Prednisone 10 mg twice a day for five days DIET INSTRUCTIONS: Cardiac and healthy. ACTIVITY: As much as tolerated. SMOKING: Advised to stop smoking. DISEASE SPECIFIC EDUCATION: About COPD, pneumonia, need of pneumonia vaccination and stopping smoking was discussed. HOSPITAL COURSE: Divya Magaña, who is a 51 year old female, comes to the [facility]. She started having cough and congestion with breathing difficulty. She came to the emergency room and was seen by the ER physician, Dr. Case. ABG's seemed to be hypoxic with a pH of 7.327, PCO2 53.6, PO2 49. White count was normal. Chest x-ray was negative. At that time in view of her acute respiratory failure and the hypoxemia, the patient was admitted to the hospital for the hypoxemia, plus respiratory failure, COPD exacerbation and bronchitis. She was started on steroids and Levaquin. The patient refused to take the steroids as she will feel jittery and restless so she didn't want to take the steroids. She was getting the antibiotics and the breathing treatments. Gradually the patient was feeling better and up and about walking. Despite being in the hospital, the patient still kept going outside and smoking. We did offer her the nicotine patch and she refused to do that. Gradually, the patient's saturation was improving and even without oxygen today it is 96. At that time, the patient is discharged home. She was clearly explained about the COPD and smoking as the smoking does cause lung cancer and we offered help. I advised her to let me put her on a patch or Chantix. The patient clearly refused at this time. She will be sent home on the Keflex and Prednisone. I advised the patient strictly to take those medications and take some Probiotics and yogurt. TIME SPENT: MORE THAN 55 to 60 MINUTES TODAY [facility]
== END 2017-02-15 22:55 | disposition home or self-care (01) | DRG 202 ==
LOC: ED 10:34 → MEDSURG A 15:40
PROVIDERS: ADMIT Emergency Medicine; ATTEND Emergency Medicine
DX: J20.9 Acute bronchitis, unspecified (principal); J96.91 Respiratory failure, unspecified with hypoxia; J44.1 Chronic obstructive pulmonary disease with (acute) exacerbation; J44.0 Chronic obstructive pulmonary disease with (acute) lower respiratory infection; R06.02 Shortness of breath; R51 Headache; R42 Dizziness and giddiness; F17.210 Nicotine dependence, cigarettes, uncomplicated; K21.9 Gastro-esophageal reflux disease without esophagitis; M19.90 Unspecified osteoarthritis, unspecified site; F32.9 Major depressive disorder, single episode, unspecified; Z91.19 Patient's noncompliance with other medical treatment and regimen; Z79.899 Other long term (current) drug therapy
CPT/HCPCS: 36415; 80053; 82550; 82803; 83880; 84145; 84484; 85025; 85379; 87040; 93005; 93010; 94640; 94761; 96365; 96375; 99284

== ENCOUNTER 2017-02-20 08:46 | Outpatient (CLI) ==
[2017-02-20] MEDS ORDERED: ALBUTEROL 0.083% NEB NEB STA (09:02)
== END 2017-02-20 08:47 | disposition home or self-care (01) ==
LOC: CAR 08:46
PROVIDERS: ATTEND Emergency Medicine
DX: J44.9 Chronic obstructive pulmonary disease, unspecified (principal)

== ENCOUNTER 2017-02-21 14:11 | Outpatient (CLI) | END 2017-02-21 14:12 | disposition home or self-care (01) | LOC: RAD 14:11 | PROVIDERS: ATTEND Nurse Practitioner Family | DX: Z12.31 Encounter for screening mammogram for malignant neoplasm of breast (principal) | CPT/HCPCS: 77067 ==

== ENCOUNTER 2017-04-09 11:36 | Outpatient (CLI) ==
[2017-04-09 11:48] LABS: BASOPHILS % (AUTO) 0.8 % (0.0-3.0); EOSINOPHILS # (AUTO) 0.2 K/ul (0.0-0.7); EOSINOPHILS % (AUTO) 3.8 % (0.0-7.0); HEMATOCRIT 40.4 % (37.0-47.0); HEMOGLOBIN 13.3 g/dl (12.0-16.0); IMMATURE GRANULOCYTE % (AUTO) 0.2 % (0.0-5.0); LYMPHOCYTES # (AUTO) 2.1 K/uL (0.60-3.4); LYMPHOCYTES % (AUTO) 39.9 (10.0-50.0); MEAN CORPUSCULAR HEMOGLOBIN 30.7 pg (27.0-31.0); MEAN CORPUSCULAR HGB CONC 32.9 (31.8-35.4); MEAN CORPUSCULAR VOLUME 93.3 fl (81.0-99.0); MONOCYTES # (AUTO) 0.5 K/uL (0.4-2.0); MONOCYTES % (AUTO) 9.5 (0-10); NEUTROPHILS # (AUTO) 2.4 K/ul (2.0-6.9); NEUTROPHILS % (AUTO) 45.8; PLATELET COUNT 280 10^3/uL (140-440); RED BLOOD COUNT 4.33 10^6/ul (4.20-5.40); WHITE BLOOD COUNT 5.29 K/ul (4.6-10.2)
[2017-04-09 12:08] LABS: ALBUMIN 3.4 g/dL (3.4-5.0); ALBUMIN/GLOBULIN RATIO 0.92; BILIRUBIN,TOTAL 0.47 mg/dL (0.00-1.20); BUN/CREATININE RATIO 22.53; CREATININE 0.71 mg/dL (0.60-1.30); TOTAL PROTEIN 7.1 g/dL (6.4-8.2)
== END 2017-04-09 11:37 | disposition home or self-care (01) ==
LOC: LAB 11:36
PROVIDERS: ATTEND Nurse Practitioner Family
DX: J44.9 Chronic obstructive pulmonary disease, unspecified (principal)
CPT/HCPCS: 36415; 80053; 82150; 83690; 85025

== ENCOUNTER 2017-08-20 16:58 | Outpatient (CLI) | END 2017-08-20 16:59 | disposition home or self-care (01) | LOC: CAR 16:58 | PROVIDERS: ATTEND Emergency Medicine | DX: R06.83 Snoring (principal); R53.83 Other fatigue | CPT/HCPCS: 95810 ==

== ENCOUNTER 2017-08-25 11:00 | Observation (INO) ==
[2017-08-25] MEDS ORDERED: ZOFRAN 4 MG/2 ML IVP PRN (11:11)
[2017-08-25 11:45] VITALS: BMI 34.3
[2017-08-25] MEDS: SODIUM CHLORIDE 1,000 ML IV SCH ×2 (12:11→23:43)
[2017-08-25] MEDS ORDERED: ULTRAM PO PRN (13:12)
[2017-08-25] MEDS ORDERED: PROAIR HFA IH PRN (13:12)
--- NOTE | 2017-08-25 14:05 | CT ---
EXAM: CT of the abdomen pelvis without contrast History: Diarrhea. Comparison: CT abdomen pelvis 01/11/2017 Technique: Multiplanar CT images through the abdomen pelvis were obtained without the administration of IV contrast Findings: Lung bases are free of consolidation. No acute osseous abnormalities. No discrete gallstones identified by CT. No focal liver or splenic lesions. No peripancreatic infla mmation. Adrenal glands are unremarkable. No renal stones and no hydronephrosis. The appendix is n ot dilated or inflamed. No free air and no ascites. No bowel obstruction. No bladder wall thickeni ng. Adnexal structures appear appropriate for patient's age. No perirectal inflammation. No bowel wall thickening. Impression: No acute intra-abdominal or pelvic process
[2017-08-25] MEDS: PRILOSEC PO SCH (16:43)
[2017-08-25] MEDS: TYLENOL PO SCH (17:03)
[2017-08-25] MEDS ORDERED: NON-FORMULARY MEDICATION (Acetaminophen [Tylenol Arthritis] 650 MG) PO SCH (18:00)
[2017-08-25] MEDS: SPIRIVA IH SCH (20:24)
[2017-08-25] MEDS: NEURONTIN PO SCH (20:25)
[2017-08-25] MEDS: NON-FORMULARY MEDICATION (Glycopyrrolate/Formoterol Fum [Bevespi Aerosphere Inhaler] 2 PUF IH SCH (20:25)
[2017-08-25] MEDS: DITROPAN XL PO SCH (20:25)
[2017-08-25] MEDS: ROBAXIN PO SCH (20:25)
[2017-08-25] MEDS ORDERED: NON-FORMULARY MEDICATION (Methocarbamol 750 MG) PO SCH (21:00)
[2017-08-25] MEDS ORDERED: OXYBUTYNIN CHLORIDE 10 MG PO SCH (21:00)
[2017-08-26] MEDS: TYLENOL PO SCH ×4 (00:25→18:42)
[2017-08-26] MEDS: PRILOSEC PO SCH ×2 (05:44→16:38)
[2017-08-26] MEDS: PAXIL PO SCH (08:31)
[2017-08-26] MEDS: LOVENOX SUBCUT SCH (08:31)
[2017-08-26] MEDS: NON-FORMULARY MEDICATION (Glycopyrrolate/Formoterol Fum [Bevespi Aerosphere Inhaler] 2 PUF IH SCH ×2 (08:31→20:58)
[2017-08-26] MEDS: NEURONTIN PO SCH ×2 (08:31→20:57)
[2017-08-26] MEDS ORDERED: PAROXETINE HCL 10 MG PO SCH (09:00)
[2017-08-26] MEDS: SODIUM CHLORIDE 1,000 ML IV SCH ×2 (11:36→22:38)
[2017-08-26] MEDS: ROBAXIN PO SCH (20:57)
[2017-08-26] MEDS: DITROPAN XL PO SCH (20:58)
[2017-08-26] MEDS: SPIRIVA IH SCH (20:58)
[2017-08-27] MEDS: TYLENOL PO SCH ×2 (00:28→05:50)
[2017-08-27] MEDS: PRILOSEC PO SCH (05:51)
[2017-08-27] MEDS: NEURONTIN PO SCH (08:43)
[2017-08-27] MEDS: NON-FORMULARY MEDICATION (Glycopyrrolate/Formoterol Fum [Bevespi Aerosphere Inhaler] 2 PUF IH SCH (08:43)
[2017-08-27] MEDS: PAXIL PO SCH (08:44)
[2017-08-27] MEDS: LOVENOX SUBCUT SCH (08:45)
[2017-08-27 10:17] VITALS: BP 147/86; TEMP 97.5
--- NOTE | 2017-08-27 11:23 | PN ---
DATE OF SERVICE: 08/26/17 SUBJECTIVE: The patient was admitted from the [facility] for the nausea and vomiting for 3-4 days and not able to keep anything down. CT was negative. She still having some diarrhea today, not able to eat and still on a clear liquid diet which she was able to keep down. REVIEW OF SYSTEMS: CONSTITUTIONAL: No fever, no chills. HEENT: Normal. ENDOCRINE: No weight gain, no weight loss. CVS: No angina symptoms. No CHF symptoms. No palpitations. No atypical chest pain for CAD. No shortness of breath. No PND, no orthopnea. RESPIRATORY: No cough, no hemoptysis. GI: No nausea, no vomiting. No abdominal pain. : No hematuria. No polyuria. MUSCULOSKELETAL: No joint swelling. PSYCHIATRIC: Not anxious. No depression. No suicidal thoughts. No homicidal thoughts. SKIN: Intact. No rash. PHYSICAL EXAMINATION: V/S: Blood pressure 132/79, respiratory rate 18, heart rate 69, temperature 98 and saturation 95. HEENT: Normocephalic, atraumatic. Mucosa dry. NECK: Supple. No JVD, no carotid bruit. No lymphadenopathy. LUNGS: Clear to auscultation. No rales or rhonchi. HEART: S1, S2 normal. No S3. No murmur, gallop or regurgitation. ABDOMEN: Soft, nontender. Bowel sounds active. No rigidity. No rebound or guarding. No CVA tenderness. EXTREMITIES: No pedal edema. No clubbing or cyanosis MUSCULOSKELETAL: No joint swelling. NEUROLOGIC: Awake, alert, oriented times three. No focal deficit. LYMPHATIC: No lymph nodes palpable. SKIN: Intact. LABS: WBC 6.35, hgb 12.4, hct 37.7, plt count 304, sodium 139, potassium 3.6, chloride 106, bicarb 325, BUN 11, creatinine 0.64 and glucose 86. ASSESSMENT: 1. Acute gastroenteritis 2. Dehydration 3. COPD 4. Osteoarthritis 5. Depression 6. Anxiety PLAN: 1. Clear liquid diet and advance as tolerated 2. Zofran PRN 3. Out of bed to chair activity as tolerated. TIME SPENT: More than 35 minutes MTDD
--- NOTE | 2017-09-23 13:24 | DS ---
DATE OF SERVICE: 08/27/17 FINAL DIAGNOSIS: 1. ACUTE GASTROENTERITIS WITH INTRACTABLE NAUSEA AND VOMITING 2. DEHYDRATION 3. CHRONIC OBSTRUCTIVE PULMONARY DISEASE 4. CORONARY ARTERY DISEASE 5. TUBAL LIGATION 6. OSTEOARTHRITIS 7. DJD OF THE SPINE 8. DEPRESSION PLAN: 1. Discharge the patient home. 2. Zofran 4 mg p.o. three times a day prn. 3. Cardiac diet. 4. Activity as much as tolerated. 5. Continue home medications of Albuterol, Tylenol, Benadryl, Neurontin, Bevespi, Robaxin, Prilosec, Zofran, Oxybutynin, Paroxetine, Tramadol, Spiriva. DISEASE SPECIFIC EDUCATION: Gastroenteritis, dehydration, food poisoning was discussed, verbalized understanding. HOSPITAL COURSE: Divya Magaña who is 52 year old female came to the office complaining of nausea, vomiting, diarrhea and not able to keep anything down for almost 4-5 days. This started after eating some outside food. The was also affected, but he got better. When I saw her in the clinic, the patient had 3-4 diarrhea episodes, watery and did not vomit. At that time, as the patient was not able to eat anything, she was admitted to the hospital. CT of the abdomen and pelvis was negative. BUN, creatinine and labs were normal. With the given Zofran treatment and IV fluids, the patient was feeling better. She was kept NPO for one day. The next day we started the clear liquids and she tolerated. This was increased to the regular diet and she did not have any problems. At that time, the patient is being discharged to home TIME SPENT: MORE THAN 35 MINUTES MTDD
== END 2017-08-27 10:25 | disposition home or self-care (01) ==
LOC: MEDSURG A 11:00 → INTOOBSV 11:00
PROVIDERS: ADMIT Emergency Medicine; ATTEND Emergency Medicine
DX: K52.9 Noninfective gastroenteritis and colitis, unspecified (principal); E86.0 Dehydration; J44.9 Chronic obstructive pulmonary disease, unspecified; I25.10 Atherosclerotic heart disease of native coronary artery without angina pectoris; F32.9 Major depressive disorder, single episode, unspecified; M19.90 Unspecified osteoarthritis, unspecified site; M47.9 Spondylosis, unspecified; Z98.51 Tubal ligation status; Z79.899 Other long term (current) drug therapy
CPT/HCPCS: 36415; 80053; 81001; 85025; 96361; 96374; 97802

== ENCOUNTER 2017-10-13 13:53 | Outpatient (CLI) | END 2017-10-13 13:54 | disposition home or self-care (01) | LOC: LAB 13:53 | PROVIDERS: ATTEND Emergency Medicine | DX: F33.1 Major depressive disorder, recurrent, moderate (principal); E78.5 Hyperlipidemia, unspecified | CPT/HCPCS: 36415; 80061; 84443 ==

== ENCOUNTER 2018-01-26 12:18 | Outpatient (CLI) | END 2018-01-26 12:19 | disposition home or self-care (01) | LOC: RHC-LAB 12:18 | PROVIDERS: ATTEND Emergency Medicine | DX: J02.9 Acute pharyngitis, unspecified (principal) | CPT/HCPCS: 87651 ==

== ENCOUNTER 2018-03-17 16:23 | Outpatient (CLI) | END 2018-03-17 16:24 | disposition home or self-care (01) | LOC: RHC-LAB 16:23 | PROVIDERS: ATTEND Nurse Practitioner Family | DX: Z51.81 Encounter for therapeutic drug level monitoring (principal) | CPT/HCPCS: 80306 ==

== ENCOUNTER 2018-03-23 12:57 | Outpatient (CLI) | END 2018-03-23 12:58 | disposition home or self-care (01) | LOC: RAD 12:57 | PROVIDERS: ATTEND Nurse Practitioner Family | DX: Z12.31 Encounter for screening mammogram for malignant neoplasm of breast (principal) | CPT/HCPCS: 77067 ==

== ENCOUNTER 2018-04-17 12:14 | Outpatient (CLI) | END 2018-04-17 12:15 | disposition home or self-care (01) | LOC: RHC-LAB 12:14 | PROVIDERS: ATTEND Nurse Practitioner Family | DX: E78.5 Hyperlipidemia, unspecified (principal); E78.1 Pure hyperglyceridemia | CPT/HCPCS: 36415; 80053; 80061 ==

== ENCOUNTER 2018-06-24 12:29 | Outpatient (CLI) | payer OTHER | END 2018-06-24 12:30 | disposition home or self-care (01) | LOC: RHC-LAB 12:29 | PROVIDERS: ATTEND Nurse Practitioner Family | DX: R05 Cough (principal) | CPT/HCPCS: 87502; 87651 ==

== ENCOUNTER 2018-09-23 10:59 | Outpatient (CLI) ==
--- NOTE | 2018-09-23 11:41 | DI ---
EXAM: Three views of the lumbar spine. History: Lower back pain, lumbar spondylosis. Findings: No acute fracture or subluxation of the lumbar spine. Mild multilevel disc space narrowin g with a few small osteophytes. Impression: 1. No acute osseous abnormality of the lumbar spine. 2. Mild degenerative disc disease
--- NOTE | 2018-09-23 11:58 | DI ---
EXAM: CERVICAL SPINE, 3 VIEWS HISTORY: Neuralgia. FINDINGS: Cervical spine open mouth, frontal and lateral views. Frontal view reveals no scoliosis . The lateral masses of C1-C2 are normally aligned. The odontoid process is grossly unremarkable. Lateral views demonstrate no spondylolisthesis, disc space abnormality or loss of vertebral body hei ght. Facet joints are normally covered. No fractures are seen. Prevertebral soft tissues are with in normal limits. IMPRESSION: Unremarkable study.
== END 2018-09-23 11:00 | disposition home or self-care (01) ==
LOC: RAD 10:59
PROVIDERS: ATTEND Pain Medicine Interventional Pain Medicine
DX: M47.816 Spondylosis without myelopathy or radiculopathy, lumbar region (principal); M47.817 Spondylosis without myelopathy or radiculopathy, lumbosacral region; M51.36 Other intervertebral disc degeneration, lumbar region; M51.37 Other intervertebral disc degeneration, lumbosacral region; M54.81 Occipital neuralgia; Z68.35 Body mass index [BMI] 35.0-35.9, adult

== ENCOUNTER 2018-10-15 08:05 | Outpatient (CLI) | END 2018-10-15 08:06 | disposition home or self-care (01) | LOC: RHC-LAB 08:05 | PROVIDERS: ATTEND Nurse Practitioner Family | DX: K21.9 Gastro-esophageal reflux disease without esophagitis (principal); E78.5 Hyperlipidemia, unspecified; E78.1 Pure hyperglyceridemia | CPT/HCPCS: 36415; 80053; 80061; 85025 ==

== ENCOUNTER 2018-11-30 20:39 | Emergency (ER) ==
[2018-11-30 20:42] VITALS: BP 160/87; TEMP 98.6; BMI 36.6
[2018-11-30] MEDS ORDERED: DECADRON 4 MG/ML SDV IM STA (20:44)
[2018-11-30] MEDS ORDERED: BENADRYL IM STA (20:44)
--- NOTE | 2018-11-30 20:48 | ED.PDOC ---
General ED Provider: Dr. MANISHA RODRIGUEZ-ER Chief Complaint: Eye Problem Stated Complaint: my eyes are itchy and swollen--we have been cleaning up some property Time Seen by Physician: 20:45 Mode of Arrival: Walk-In Information Source: Patient Exam Limitations: No limitations Primary Care Provider: JOANIE BECERRA Nursing and Triage Documentation Reviewed and Agree: Yes Does patient meet sepsis criteria?: No System Inflammatory Response Syndrome: Not Applicable Sepsis Protocol: For patient's 13 years and over: Temp is 96.8 and below OR 101 and greater Pulse >90 BPM Resp >20/minute Acutely Altered Mental Status Are patient's symptoms suggestive of a new infection, such as: -Pneumonia -Skin, Soft Tissue -Endocarditis -UTI -Bone, Joint Infection -Implantable Device -Acute Abdominal Infection -Wound Infection -Meningitis -Blood Stream Catheter Infection -Unknown EENT Complaint Exam - Eye Complaint/Exam Onset/Duration: 24 hrs Symptoms Are: Still present Timing: Constant Initial Severity: Mild Current Severity: Mild Location: Bilateral Alleviating: Reports: None Associated Signs and Symptoms: Reports: Clear drainage Globe Rupture Risk Factors: None Acute Glaucoma Risk Factors: None Optic Artery Occlusion Risk Factors: None Visual Field: Normal Extraocular Movement: Normal Orbit Findings: Normal Globe Findings: Intact Lid Findings: Normal Conjunctival Findings: Red Corneal Findings: Clear Fundi: Normal Slit Lamp Used: No Differential Diagnoses: Other Review of Systems - Review Of Systems Constitutional: Reports: No symptoms Eyes: Reports: Drainage Ears, Nose, Mouth, Throat: Reports: No symptoms Respiratory: Reports: No symptoms Cardiac: Reports: No symptoms GI: Reports: No symptoms : Reports: No symptoms Musculoskeletal: Reports: No symptoms Skin: Reports: No symptoms Neurological: Reports: No symptoms Endocrine: Reports: No symptoms Hematologic/Lymphatic: Reports: No symptoms All Other Systems: Reviewed and Negative Past Medical History - Past Medical History Previously Healthy: No Endocrine: Reports: None Cardiovascular: Reports: None Respiratory: Reports: COPD Hematological: Reports: None Gastrointestinal: Reports: GERD, Unknown Genitourinary: Reports: None Neuro/Psych: Reports: Depression Musculoskeletal: Reports: None Cancer: Reports: None Last Menstrual Period: N/A Other Pertinent Past Medical History: copd gerd depr btl cts right hand - Surgical History General Surgical History: Reports: Tubal ligation, Orthopedic (carpal tunnel right hand[) - Family History Family History: Reports: Unknown - Social History Smoking Status: Current every day smoker, Heavy tobacco smoker Hx Substance Use: No Alcohol Screening: None Physical Exam - Physical Exam Appearance: Well-appearing Eyes: Conjunctiva inflammed ENT: Ears normal, Nose normal, Oropharynx normal Neck: Supple Respiratory: Airway patent, Breath sounds clear, Breath sounds equal, Respirations nonlabored Cardiovascular: RRR GI/: Soft Musculoskeletal: Normal strength Skin: Warm, Dry, Normal color Neurological: Sensation intact, Motor intact, Reflexes intact, Cranial nerves intact, Alert, Oriented Psychiatric: Affect appropriate, Mood appropriate Critical Care Note - Critical Care Note Total Time (mins): 0 Course - Course Orders, Labs, Meds: Orders Category Date Time Status Dexamethasone 4 mg/ml Inj [Decadron 4 mg/ml Sdv] MEDS 11/30/18 20:44 Discontinued 8 mg IM ONCE STA Diphenhydramine Inj [Benadryl] MEDS 11/30/18 20:44 Discontinued 50 mg IM ONCE STA Medications Discontinued Medications Generic Name Dose Route Start Last Admin Trade Name Freq PRN Reason Stop Dose Admin Dexamethasone Sodium Phosphate 8 mg 11/30/18 20:44 Decadron 4 Mg/Ml Sdv IM 11/30/18 20:45 ONCE STA Diphenhydramine HCl 50 mg 11/30/18 20:44 Benadryl IM 11/30/18 20:45 ONCE STA Vital Signs: Temp Pulse Resp BP Pulse Ox 11/30/18 20:39 98.6 F 101 H 18 160/87 H 90 L Departure - Departure Time of Disposition: 20:47 Disposition: HOME SELF-CARE Discharge Problem: Allergic conjunctivitis Qualifiers: Laterality: bilateral Qualified Code(s): H10.13 - Acute atopic conjunctivitis, bilateral Instructions: Allergies (ED) Condition: Good Pt referred to PMD for follow-up: Yes IPMP verified?: No Additional Instructions: cool compresses---see eyes doctor tomorrow if not improving Allergies/Adverse Reactions: Allergies bupropion HCl [From Wellbutrin] Allergy (Severe, Unverified 11/30/18 20:41) depression Patient will notify drugstore meloxicam [From Mobic] Allergy (Intermediate, Verified 11/30/18 20:41) Chest Tightness atorvastatin calcium [From Lipitor] Allergy (Mild, Unverified 11/30/18 20:41) elevates blood sugar Patient to notify drustore diclofenac Allergy (Mild, Verified 11/30/18 20:41) Unknown ampicillin Adverse Reaction (Mild, Verified 11/30/18 20:41) migraines azithromycin [From Zithromax] Adverse Reaction (Mild, Verified 11/30/18 20:41) diarrhea, weakness, dizziness prednisone Adverse Reaction (Mild, Verified 11/30/18 20:41) insomnia, muscle pain venlafaxine [From Effexor] Adverse Reaction (Mild, Verified 11/30/18 20:41) constipation fluoxetine [From Prozac] Adverse Reaction (Verified 11/30/18 20:41) migraines, headaches naproxen Adverse Reaction (Verified 11/30/18 20:41) Home Medications: Ambulatory Orders Diphenhydramine HCl [Benadryl] 25 mg PO Q8H PRN 08/25/17 Disposition Discussed With: Patient
== END 2018-11-30 21:33 | disposition home or self-care (01) ==
LOC: ED 20:39
DX: H10.13 Acute atopic conjunctivitis, bilateral (principal); F17.210 Nicotine dependence, cigarettes, uncomplicated
CPT/HCPCS: 96372; 99282